=== PATIENT | female | born 1950 | race Caucasian/White ===

== ENCOUNTER 2018-09-19 15:55 | Inpatient (IN) | payer OTHER ==
--- OUTSIDE RECORDS SUMMARY | 2018-09-19 15:58 | XMS REPORT | Clinical Summary ---
:1950 Author Organization [facility] Address [address] [place] [address] Care Team Providers Name Role Phone Gregorio Schumacher DO Primary Care Provider Allergies Not on File Medications Not on file Active Problems Not on file Encounters Date Type Specialty Care Team Description 08/20/2018 Hospital Encounter Radiology Gregorio Schumacher Memory loss III, DO 08/13/2018 Transcribe Orders Access Gregorio Schumacher Memory loss ( Primary Dx) III, DO after 09/18/2017 Social History Tobacco Use Types Packs/Day Years Used Date Never Assessed Sex Assigned at Date Recorded Not on file Job Start Date Occupation Industry Not on file Not on file Not on file Travel History Travel Start Travel End No recent travel history available. Last Filed Vital Signs Not on file Plan of Treatment Health Maintenance Due Date Last Done Comments BREAST CANCER SCREENING 1998 COLON CANCER SCREENING 1998 SHINGLES VACCINES (#1) 1998 65+ PNEUMOCOCCAL VACCINE (1 of 2 - PCV13) 2013 PNEUMOCOCCAL POLYSACCHARIDE VACCINE AGE 65 AND OVER 2013 INFLUENZA VACCINE 02/19/2018 Procedures Procedure Name Priority Date/Time Associated Diagnosis Comments MRI BRAIN WO Routine 08/20/2018 12:34 PM Memory loss Results for this CONTRAST FUR TRIMMER procedure are in the results section. after 09/18/2017 Results MRI Brain Wo Contrast (08/20/2018 12:34 PM FUR TRIMMER) Narrative Performed At EXAMINATION: MRI BRAIN WO CONTRAST HM RADIANT CLINICAL HISTORY: R41.3 Other amnesia, R41.3 COMPARISON:None TECHNIQUE: Multiplanar and multisequence MRI imaging of the brain was obtained without contrast. FINDINGS: There is no evidence of acute infarct, intracranial hemorrhage or mass, hydrocephalus or midline shift. There is mild nonspecific enlargement of the ventricles and extra axial space and nonspecific white matter changes. There is no evidence of normal pressure hydrocephalus. The sella is slightly enlarged and partially empty. The orbits, sinuses and mastoid air cells do not show acute abnormality. IMPRESSION: No acute findings in the brain or extra axial region. If indicated further evaluation with a PET scan can be performed for memory loss. [facility]-[id number] Procedure Note Hm Interface, Radiology Results Incoming - 08/20/2018 12:40 PM FUR TRIMMER EXAMINATION: MRI BRAIN WO CONTRAST CLINICAL HISTORY: R41.3 Other amnesia, R41.3 COMPARISON: None TECHNIQUE: Multiplanar and multisequence MRI imaging of the brain was obtained without contrast. FINDINGS: There is no evidence of acute infarct, intracranial hemorrhage or mass, hydrocephalus or midline shift. There is mild nonspecific enlargement of the ventricles and extra axial space and nonspecific white matter changes. There is no evidence of normal pressure hydrocephalus. The sella is slightly enlarged and partially empty. The orbits, sinuses and mastoid air cells do not show acute abnormality. IMPRESSION: No acute findings in the brain or extra axial region. If indicated further evaluation with a PET scan can be performed for memory loss. [facility]-[id number] Performing Organization Address City/State/Zipcode Phone Number [facility] [address] [place] [address] after 09/18/2017 Insurance Payer Benefit Plan / Group Subscriber ID Type Phone Address [employer] PPO xxxxxxxxxx PPO [id number] MEDICARE MEDICARE PART A AND B xxxxxxxxxxx Medicare [place], [place] CIGNA CIGNA HMO/POS xxxxxxxxxx O Advance Directives Patient has advance care planning documents on file. For more information, please contact:[address] [address]
[2018-09-19] MEDS ORDERED: LEVALBUTEROL 1.25 MG/3 ML NEB ONE (16:49)
[2018-09-19] MEDS ORDERED: NA CHLORIDE 0.9% 1,000 ML ONE (16:50)
[2018-09-19] MEDS ORDERED: NA CHLORIDE 0.9% 500 ML ONE (16:50)
[2018-09-19] MEDS ORDERED: levoFLOXacin 500 MG TAB ONE (17:14)
[2018-09-19 17:31] LABS: ALT/SGPT 42 U/L (12-78); AST/SGOT 27 U/L (15-37); Albumin 3.6 g/dL (3.4-5.0); Alkaline Phosphatase 95 U/L (45-117); BUN Blood Urea Nitrogen 13 mg/dL (7-18); Bicarbonate 31 mmol/L (21-32); Bilirubin Direct 0.3 mg/dL (0-0.2); Bilirubin Total 1.1 mg/dL (0.2-1.0); CKMB Creatine Kinase MB < 1.0 ng/mL (0.3-3.6); Creatine Phosphokinase 38 U/L (26-192); Glucose Level 167 mg/dL (74-106); Lipase 56 U/L (73-393); Potassium 3.3 mmol/L (3.5-5.1); Protein, Total 7.3 g/dL (6.4-8.2); Sodium Level 132 mmol/L (136-145); Troponin (Emerg Dept Use Only) 0.02 ng/mL (0.0-0.045)
[2018-09-19 17:33] LABS: Protime INR 1.17
--- NOTE | 2018-09-19 17:42 | RAD REPORT ---
EXAM DESCRIPTION: RAD - Chest Single View - 09/19/2018 5:36 pm CLINICAL HISTORY: Congestion;Cough Chest pain. COMPARISON: No comparisons FINDINGS: Portable technique limits examination quality. Mild consolidation is seen in the right upper lobe compatible with pneumonia. The lungs are emphysema tous. The heart is normal in size. No displaced fractures. IMPRESSION: Right upper lobe pneumonia.
[2018-09-19 17:46] LABS: Absolute Lymphocytes (CBC) 0.8 K/uL (0.7-4.9); Absolute Neutrophil 16.8 K/uL (1.8-8.0); Basophils % 0.2 % (0-1.3); Hematocrit 45.4 % (36.0-45.0); Lymphocytes % 4.4 % (15.3-44.8); MPV 9.7 fL (7.6-11.3); Monocytes % 5.2 % (3.3-12.3); RBC Red Blood Cell Count 5.05 M/uL (3.86-4.86)
--- NOTE | 2018-09-19 18:02 | EDPHYS ---
Physician Documentation [facility] Name: Colleen Kohler Age: 68 yrs Sex: Female : 1950 Arrival Date: 09/19/2018 Time: 16:00 Bed 27 Private MD: ED Physician Fletcher Awan HPI: 09/19 16:30 This 68 yrs old Female presents to ER via Ambulatory with complaints of kdr Dizziness, Back Pain, Cough. 16:45 The patient or guardian reports cough, that is intermittent, described as moderate, kdr with productive sputum, difficulty breathing. Onset: The symptoms/episode began/occurred gradually, 2 week(s) ago. Severity of symptoms: At their worst the symptoms were mild, moderate, just prior to arrival, in the emergency department the symptoms are unchanged. Modifying factors: The symptoms are alleviated by nothing, the symptoms are aggravated by exertion, Coughing. Associated signs and symptoms: Pertinent positives: Pertinent negatives: chest pain, diarrhea, ear ache, fever, nausea, rhinorrhea. The patient has not experienced similar symptoms in the past. The patient has been recently seen by a physician: Was seen at urgent care and given abx about two weeks ago but she has continued to get worse. Now with cough/congestion and mild conofusion. Historical: - Allergies: 16:04 PENICILLINS; hj 16:04 Sulfa (Sulfonamide Antibiotics); hj - Home Meds: 16:04 benzonatate 200 mg oral cap 1 cap 3 times per day [Active]; metoprolol tartrate 25 mg hj Oral tab 1 tab once daily [Active]; donepezil 5 mg oral tab 1 tab once daily [Active]; oseltamivir oral oral 1 cap once daily [Active]; - PMHx: 16:04 Hypertension; Alzheimers; hj - PSHx: 16:04 wrist; hj - Immunization history:: Adult Immunizations up to date. - Social history:: Smoking status: Patient/guardian denies using tobacco, Patient/guardian denies using alcohol. - Ebola Screening: : Patient negative for fever greater than or equal to 101.5 degrees Fahrenheit, and additional compatible Ebola Virus Disease symptoms Patient denies exposure to infectious person Patient denies travel to an Ebola-affected area in the 21 days before illness onset. ROS: 16:45 Constitutional: Negative for fever, chills, and weight loss, Eyes: Negative for injury, kdr pain, redness, and discharge, ENT: Negative for injury, pain, and discharge, Neck: Negative for injury, pain, and swelling, Cardiovascular: Negative for chest pain, palpitations, and edema, Abdomen/GI: Negative for abdominal pain, nausea, vomiting, diarrhea, and constipation, Back: Negative for injury and pain, : Negative for injury, bleeding, discharge, and swelling, MS/Extremity: Negative for injury and deformity, Skin: Negative for injury, rash, and discoloration, Psych: Negative for depression, anxiety, suicide ideation, homicidal ideation, and hallucinations, Allergy/Immunology: Negative for hives, rash, and allergies, Endocrine: Negative for neck swelling, polydipsia, polyuria, polyphagia, and marked weight changes, Hematologic/Lymphatic: Negative for swollen nodes, abnormal bleeding, and unusual bruising. 16:45 Respiratory: Positive for cough, with green sputum, dyspnea on exertion, shortness of breath, wheezing, Negative for hemoptysis, orthopnea, pleurisy. 16:45 Abdomen/GI: Positive for abdominal pain. Exam: 16:45 Constitutional: This is a well developed, well nourished patient who is awake, alert, kdr and in no acute distress. Head/Face: Normocephalic, atraumatic. Eyes: Pupils equal round and reactive to light, extra-ocular motions intact. Lids and lashes normal. Conjunctiva and sclera are non-icteric and not injected. Cornea within normal limits. Periorbital areas with no swelling, redness, or edema. Neck: Trachea midline, no thyromegaly or masses palpated, and no cervical lymphadenopathy. Supple, full range of motion without nuchal rigidity, or vertebral point tenderness. No Meningismus. Chest/axilla: Normal chest wall appearance and motion. Nontender with no deformity. No lesions are appreciated. Cardiovascular: Regular rate and rhythm with a normal S1 and S2. No gallops, murmurs, or rubs. Normal PMI, no JVD. No pulse deficits. Abdomen/GI: Soft, non-tender, with normal bowel sounds. No distension or tympany. No guarding or rebound. No evidence of tenderness throughout. Back: No spinal tenderness. No costovertebral tenderness. Full range of motion. Skin: Warm, dry with normal turgor. Normal color with no rashes, no lesions, and no evidence of cellulitis. MS/ Extremity: Pulses equal, no cyanosis. Neurovascular intact. Full, normal range of motion. Neuro: Awake and alert, GCS 15, oriented to person, place, time, and situation. Cranial nerves II-XII grossly intact. Motor strength 5/5 in all extremities. Sensory grossly intact. Cerebellar exam normal. Normal gait. Psych: Awake, alert, with orientation to person, place and time. Behavior, mood, and affect are within normal limits. 16:45 Respiratory: the patient does not display signs of respiratory distress, Respirations: normal, Breath sounds: rales, that are mild, are scattered, are heard diffusely, rhonchi, that are mild, are scattered. Vital Signs: 16:05 BP 123 / 91; Pulse 89; Resp 18; Temp 99.1(O); Pulse Ox 95% on R/A; Weight 56.7 kg; hj Height 5 ft. 4 in. (162.56 cm); 17:26 BP 141 / 91 LA Supine (auto/reg); Pulse 103; Pulse Ox 95% on R/A; jp3 17:28 BP 117 / 82 LA Sitting (auto/reg); Pulse 107; Pulse Ox 94% on R/A; jp3 17:30 BP 89 / 61 LA Standing (auto/reg); Pulse 106; Pulse Ox 95% on R/A; jp3 18:08 BP 121 / 82; Pulse 95; Resp 18; Temp 99.3(TE); Pulse Ox 96% on 2 lpm NC; Pain 0/10; mg2 19:47 BP 131 / 86; Pulse 96; Resp 18; Temp 98.8(O); Pulse Ox 97% on R/A; Pain 3/10; mg2 16:05 Body Mass Index 21.46 (56.70 kg, 162.56 cm) hj 17:26 Patient reported "feeling uncomfortable, pain to right and left tempal" jp3 17:28 Pt reported "feeling worse than supine position" jp3 17:30 Pt reported "feeling better" jp3 MDM: 16:45 Data reviewed: vital signs, nurses notes, lab test result(s), EKG, radiologic studies. kdr 18:01 Patient medically screened. kdr 09/19 16:30 Order name: Sed Rate kdr 03 16:30 Order name: C-Reactive Protein; Complete Time: 17:43 kdr 09/19 16:30 Order name: Basic Metabolic Panel; Complete Time: 17:43 kdr 09/19 16:30 Order name: Blood Culture Adult (2) kdr 09/19 16:30 Order name: CBC with Diff kdr 09/19 16:30 Order name: Ckmb; Complete Time: 17:43 kdr 09/19 16:30 Order name: CPK; Complete Time: 17:43 kdr 09/19 16:30 Order name: Lactate; Complete Time: 17:43 kdr 09/19 16:30 Order name: LFT's; Complete Time: 17:43 kdr 09/19 16:30 Order name: Lipase; Complete Time: 17:43 kdr 09/19 16:30 Order name: Procalcitonin; Complete Time: 17:43 kdr 09/19 16:30 Order name: Protime (+inr) kdr 09/19 16:30 Order name: Ptt, Activated kdr 09/19 16:30 Order name: Troponin (emerg Dept Use Only); Complete Time: 17:43 kdr 09/19 16:30 Order name: Urine Microscopic Only kdr 09/19 16:30 Order name: Chest Single View XRAY; Complete Time: 17:43 kdr 09/19 16:30 Order name: Accucheck; Complete Time: 16:58 kdr 09/19 16:30 Order name: Cardiac monitoring; Complete Time: 16:58 kdr 09/19 16:30 Order name: EKG - Nurse/Tech; Complete Time: 18:40 kdr 09/19 16:30 Order name: IV Saline Lock - Large Bore; Complete Time: 16:58 kdr 09/19 16:31 Order name: Sedimentation Rate, Westergren EDAZ 09/19 18:40 Order name: Urine Dipstick--Ancillary (enter results) eb 09/19 18:42 Order name: CT Head Brain w/wo Con mg2 09/19 19:08 Order name: Urine Dipstick-Ancillary EDAZ 09/19 19:12 Order name: CT EDMS 09/19 16:30 Order name: Labs collected and sent; Complete Time: 16:58 kdr 09/19 16:30 Order name: O2 Per Protocol; Complete Time: 16:58 kdr 09/19 16:30 Order name: O2 Sat Monitoring; Complete Time: 16:58 kdr 09/19 16:30 Order name: Urine Dipstick-Ancillary (obtain specimen); Complete Time: 18:57 kdr 09/19 16:31 Order name: Orthostatic Blood Pressure; Complete Time: 17:42 kdr Administered Medications: 16:57 Drug: Xopenex (3) 1.25 mg Route: Inhalation; mg2 19:49 Follow up: Response: No adverse reaction mg2 16:58 Drug: NS 0.9% (30 ml/kg) 30 ml/kg Route: IV; Rate: bolus; Site: right antecubital; mg2 19:49 Follow up: Response: No adverse reaction; IV Status: Infusion continued upon transfer mg2 17:44 Drug: LevaQUIN 500 mg Route: PO; mg2 19:49 Follow up: Response: No adverse reaction mg2 18:07 Drug: vancoMYCIN 1 grams Route: IVPB; Infused Over: 2 hrs; Site: right antecubital; mg2 19:49 Follow up: Response: No adverse reaction; IV Status: Infusion continued upon admission mg2 19:47 Drug: Tylenol 1000 mg Route: PO; mg2 19:48 Follow up: Response: No adverse reaction mg2 Disposition: 09/19/18 18:01 Hospitalization ordered by Karli Zuniga for Inpatient Admission. Preliminary diagnosis are Pneumonia, unspecified organism, Sepsis, hypoxia (87%) RA, Hypotension. - Bed requested for Telemetry/MedSurg (Inpatient). - Status is Inpatient Admission. mg2 - Condition is Fair. - Problem is new. - Symptoms are unchanged. UTI on Admission? No Signatures: Dispatcher [employer] [facility] Yareli White RN RN Fletcher Awan MD MD [facility] Marty Neumann RN RN Omid Conlkin RN RN mg2 Corrections: (The following items were deleted from the chart) 18:30 18:01 Hospitalization Ordered by Karli Zuniga MD for Inpatient Admission. Preliminary diagnosis is Pneumonia, unspecified organism; Sepsis; hypoxia (87%) RA; Hypotension. Bed requested for Telemetry/MedSurg (Inpatient). Status is Inpatient Admission. Condition is Fair. Problem is new. Symptoms are unchanged. UTI on Admission? No. kdr 20:20 18:30 09/19/2018 18:01 Hospitalization Ordered by Karli Zuniga MD for Inpatient mg2 Admission. Preliminary diagnosis is Pneumonia, unspecified organism; Sepsis; hypoxia (87%) RA; Hypotension. Bed requested for Telemetry/MedSurg (Inpatient). Status is Inpatient Admission. Condition is Fair. Problem is new. Symptoms are unchanged. UTI on Admission? No. dw
--- NOTE | 2018-09-19 18:02 | ER ---
Nurse's Notes [facility] Name: Colleen Kohler Age: 68 yrs Sex: Female : 1950 Arrival Date: 09/19/2018 Time: 16:00 Bed 27 Private MD: Diagnosis: Pneumonia, unspecified organism;Sepsis;hypoxia (87%) RA;Hypotension Presentation: 09/19 16:01 Presenting complaint: states: she been treated for bronchitis, its getting hj worse, cough is getting worse and she's getting dizzy; denies fever and chills;. Transition of care: patient was not received from another setting of care. Onset of symptoms was September 19, 2018. Risk Assessment: Do you want to hurt yourself or someone else? Patient reports no desire to harm self or others. Initial Sepsis Screen: Does the patient meet any 2 criteria? No. Patient's initial sepsis screen is negative. Does the patient have a suspected source of infection? No. Patient's initial sepsis screen is negative. Care prior to arrival: None. 16:01 Method Of Arrival: Ambulatory 16:01 Acuity: LUIS DANIEL 3 hj Triage Assessment: 16:05 General: Appears in no apparent distress. uncomfortable, Behavior is calm, cooperative, hj appropriate for age. Pain: Denies pain. Musculoskeletal: Circulation, motion, and sensation intact. Capillary refill. Historical: - Allergies: 16:04 PENICILLINS; hj 16:04 Sulfa (Sulfonamide Antibiotics); hj - Home Meds: 16:04 benzonatate 200 mg oral cap 1 cap 3 times per day [Active]; metoprolol tartrate 25 mg Oral tab 1 tab once daily [Active]; donepezil 5 mg oral tab 1 tab once daily [Active]; oseltamivir oral oral 1 cap once daily [Active]; - PMHx: 16:04 Hypertension; Alzheimers; hj - PSHx: 16:04 wrist; hj - Immunization history:: Adult Immunizations up to date. - Social history:: Smoking status: Patient/guardian denies using tobacco, Patient/guardian denies using alcohol. - Ebola Screening: : Patient negative for fever greater than or equal to 101.5 degrees Fahrenheit, and additional compatible Ebola Virus Disease symptoms Patient denies exposure to infectious person Patient denies travel to an Ebola-affected area in the 21 days before illness onset. Screenin:05 Abuse screen: Denies threats or abuse. Denies injuries from another. Nutritional hj screening: No deficits noted. Tuberculosis screening: No symptoms or risk factors identified. Fall Risk None identified. Assessment: 17:47 General: Appears in no apparent distress. comfortable, Behavior is calm, cooperative. mg2 Pain: Complains of pain in back and left temporal Pain does not radiate. Pain currently is 2 out of 10 on a pain scale. Quality of pain is described as aching, Pain began gradually, 2 weeks ago Is intermittent. Neuro: Level of Consciousness is awake, alert, obeys commands, Oriented to person, place, time, situation, Reports dizziness. Cardiovascular: Capillary refill < 3 seconds Patient's skin is warm and dry. Respiratory: Airway is patent Respiratory effort is even, unlabored, Respiratory pattern is regular, symmetrical. Respiratory: cough. GI: No signs and/or symptoms were reported involving the gastrointestinal system. : No signs and/or symptoms were reported regarding the genitourinary system. EENT: No signs and/or symptoms were reported regarding the EENT system. Derm: Skin is intact, is healthy with good turgor, Skin is pink, warm \\T\\ dry. normal. Musculoskeletal: Circulation, motion, and sensation intact. Capillary refill. 18:08 Reassessment: patient informed about the need for hospitalization, patient agreed. mg2 18:41 Reassessment: dr dove at bedside examining the patient. mg2 Vital Signs: 16:05 BP 123 / 91; Pulse 89; Resp 18; Temp 99.1(O); Pulse Ox 95% on R/A; Weight 56.7 kg; hj Height 5 ft. 4 in. (162.56 cm); 17:26 BP 141 / 91 LA Supine (auto/reg); Pulse 103; Pulse Ox 95% on R/A; jp3 17:28 BP 117 / 82 LA Sitting (auto/reg); Pulse 107; Pulse Ox 94% on R/A; jp3 17:30 BP 89 / 61 LA Standing (auto/reg); Pulse 106; Pulse Ox 95% on R/A; jp3 18:08 BP 121 / 82; Pulse 95; Resp 18; Temp 99.3(TE); Pulse Ox 96% on 2 lpm NC; Pain 0/10; mg2 19:47 BP 131 / 86; Pulse 96; Resp 18; Temp 98.8(O); Pulse Ox 97% on R/A; Pain 3/10; mg2 16:05 Body Mass Index 21.46 (56.70 kg, 162.56 cm) hj 17:26 Patient reported "feeling uncomfortable, pain to right and left tempal" jp3 17:28 Pt reported "feeling worse than supine position" jp3 17:30 Pt reported "feeling better" jp3 ED Course: 16:00 Patient arrived in ED. mr 16:03 Triage completed. hj 16:03 Fletcher wAan MD is Attending Physician. kdr 16:05 Arm band placed on right wrist. hj 16:05 Patient has correct armband on for positive identification. Placed in gown. Call light hj in reach. Side rails up X 1. Adult w/ patient. 16:20 Omid Conklin, RN is Primary Nurse. mg2 16:21 No provider procedures requiring assistance completed. mg2 17:35 X-ray completed. Portable x-ray completed in exam room. Patient tolerated procedure mh1 well. 17:36 Chest Single View XRAY In Process Unspecified. EDMS 17:42 Sed Rate Sent. jp3 17:49 Inserted saline lock: 20 gauge in right antecubital area, using aseptic technique. mg2 Blood collected. 17:56 Karli Dove MD is Hospitalizing Provider. kdr 18:[address] nj 19:02 CT completed. Patient tolerated procedure well. Patient moved back from CT. nj 19:52 Patient admitted, IV remains in place. mg2 Administered Medications: 16:57 Drug: Xopenex (3) 1.25 mg Route: Inhalation; mg2 19:49 Follow up: Response: No adverse reaction mg2 16:58 Drug: NS 0.9% (30 ml/kg) 30 ml/kg Route: IV; Rate: bolus; Site: right antecubital; mg2 19:49 Follow up: Response: No adverse reaction; IV Status: Infusion continued upon transfer mg2 17:44 Drug: LevaQUIN 500 mg Route: PO; mg2 19:49 Follow up: Response: No adverse reaction mg2 18:07 Drug: vancoMYCIN 1 grams Route: IVPB; Infused Over: 2 hrs; Site: right antecubital; mg2 19:49 Follow up: Response: No adverse reaction; IV Status: Infusion continued upon admission mg2 19:47 Drug: Tylenol 1000 mg Route: PO; mg2 19:48 Follow up: Response: No adverse reaction mg2 Outcome: 18:01 Decision to Hospitalize by Provider. kdr 20:01 Admitted to Med/surg accompanied by tech, via wheelchair, room 229, with chart, Report mg2 called to ASTER Baig 20:01 Condition: stable 20:01 Instructed on the need for admit, Demonstrated understanding of instructions. 20:20 Patient left the ED. mg2 Signatures: Dispatcher [employer] EDMS Fletcher Awan MD MD [facility] Chaney, Margaret Daniel Gutiérrezha 1 Marty Neumann RN RN hj Adilson Martinez Michele, RN RN mg2 Chepe Fuentes jp3 Corrections: (The following items were deleted from the chart) 16:07 16:05 Pulse 89bpm; Resp 18bpm; Pulse Ox 96% RA; Temp 99.1F Oral; 56.7 kg; Height 5 ft. hj 4 in.; BMI: 21.4; hj 16:07 16:05 BP 123 / 91; Pulse 89bpm; Resp 18bpm; Pulse Ox 96% RA; Temp 99.1F Oral; 56.7 kg; hj Height 5 ft. 4 in.; BMI: 21.4; hj
[2018-09-19] MEDS ORDERED: VANCOMYCIN 1 GM/VIAL ONE (18:06)
[2018-09-19] MEDS ORDERED: NA CHLORIDE 0.9% 250 ML ONE (18:06)
--- NOTE | 2018-09-19 18:23 | P.HP ---
Certification for Inpatient Patient admitted to: Inpatient With expected LOS: >2 Midnights Patient will require the following post-hospital care: None Practitioner: I am a practitioner with admitting privileges, knowledge of patient current condition, hospital course, and medical plan of care. Services: Services provided to patient in accordance with Admission requirements found in Title 42 Section 412.3 of the Code of Federal Regulations Patient History Date of Service: 09/19/18 Reason for admission: PNA History of Present Illness: 68-year-old female with significant past medical history of hypertension, COPD, and dementia who presented to the ED complaining of having some cough and congestion that has been going on for over a month now. Patient and at bedside stated that they both went to the urgent care last week when they started having fever chills coughing congestion and were discharged on the urgent care with prescription for Tamiflu, cough medicine, antibiotics for her. Patient stated that she did not have any resolution of her symptoms and thus she decided to come to the ER. Patient continues to have fever and chills at the house. T-max of 99.4. She has last about 2-3 seconds and go away. Patient states that she does not have a primary care doctor in town and does not followup with anybody. She has been traveling with her and moves from state to state thus not able to establish care with anyone particular doctor. Patient does not currently take any inhalers for her COPD. Denies smoking or alcohol ever. Denies having any shortness of breath chest pain nausea vomiting or any other associated symptoms. Home medications list reviewed: Yes - Past Medical/Surgical History Has patient received pneumonia vaccine in the past: Yes Diabetic: No -: HTN -: COPD -: dementia Past Surgical History: Reviewed- Non-Contributory - Family History Family History: Reviewed- Non-Contributory - Social History Smoking Status: Never smoker Counseled patient to stop smoking for: more than 10 minutes Smoking therapy provided: Yes Patient receptive to therapy: Yes Alcohol use: No CD- Drugs: No Caffeine use: No Place of Residence: Home Review of Systems 10-point ROS is otherwise unremarkable Physical Examination - Physical Exam General: Alert, In no apparent distress, Demented HEENT: Atraumatic, PERRLA, Mucous membr. moist/pink, EOMI, Sclerae nonicteric Neck: Supple, 2+ carotid pulse no bruit, No LAD, Without JVD or thyroid abnormality Respiratory: Normal air movement, Expiratory wheezes, Inspiratory wheezes Cardiovascular: Regular rate/rhythm, Normal S1 S2 Gastrointestinal: Normal bowel sounds, No tenderness Musculoskeletal: No tenderness Integumentary: No rashes Neurological: Normal gait, Normal speech, Normal strength at 5/5 x4 extr, Normal tone, Normal affect Lymphatics: No axilla or inguinal lymphadenopathy - Studies Laboratory Data (last 24 hrs) 09/19/18 16:45: PT 13.7 H, INR 1.17, APTT 29.8 09/19/18 16:45: Sodium 132 L, Potassium 3.3 L, BUN 13, Creatinine 0.84, Glucose 167 H, Total Bilirubin 1.1 H, AST 27, ALT 42, Alkaline Phosphatase 95, Lipase 56 L 09/19/18 16:45: WBC 18.7 H, Hgb 15.1 H, Hct 45.4 H, Plt Count 191 Assessment and Plan - Problems (Diagnosis) (1) PNA (pneumonia) Current Visit: Yes Status: Acute Plan: Pt with post influenza RUL PNA. Failed Outpt therapy. -recently finished treatment for influenza with Tamiflu. -IV Levaquin at this time -Sputum culture and blood culture to be collected -Will monitor continuously Qualifiers: Pneumonia type: due to unspecified organism Laterality: right Lung location: upper lobe of lung Qualified Code(s): J18.1 - Lobar pneumonia, unspecified organism (2) COPD (chronic obstructive pulmonary disease) Current Visit: Yes Status: Acute Plan: Acute COPD exacerbation most likely secondary to pneumonia -duo nebs, steroids, oxygen at this time -will get pulmonology consulted if no improvement. Qualifiers: COPD type: emphysema Emphysema type: centrilobular Qualified Code(s): J43.2 - Centrilobular emphysema (3) HTN (hypertension) Current Visit: Yes Status: Chronic Qualifiers: Hypertension type: essential hypertension Qualified Code(s): I10 - Essential (primary) hypertension (4) Dementia Current Visit: Yes Status: Chronic Qualifiers: Dementia type: Alzheimer's disease Alzheimer's disease onset: early-onset Dementia behavioral disturbance: without behavioral disturbance Qualified Code(s): G30.0 - Alzheimer's disease with early onset; F02.80 - Dementia in other diseases classified elsewhere without behavioral disturbance Discharge Plan: Home Plan to discharge in: Greater than 2 days - Advance Directives Does patient have a Living Will: No Does patient have a Durable POA for Healthcare: No - Code Status/Comfort Care Code Status Assessed: Yes Critical Care: No
[2018-09-19 19:08] LABS: Urine Blood TRACE (NEG); Urine Glucose NEGATIVE (NEG); Urine Protein TRACE (NEG); Urine Specific Gravity 1.015 (1.005-1.030)
--- NOTE | 2018-09-19 19:09 | RAD REPORT ---
EXAM DESCRIPTION: CT - Head Brain Wo Cont - 09/19/2018 7:03 pm CLINICAL HISTORY: DIZZINESS Drowsiness, headache COMPARISON: No comparisons TECHNIQUE: All CT scans are performed using dose optimization technique as appropriate and may inclu de automated exposure control or mA/KV adjustment according to patient size. FINDINGS: No intracranial hemorrhage, hydrocephalus or extra-axial fluid collection.Mild generalized brain atrophy is present with mild periventricular and deep white matter chronic microvascular ische brian changes.No areas of brain edema or evidence of midline shift. The paranasal sinuses and mastoids are clear. The calvarium is intact. IMPRESSION: No acute intracranial abnormality.
[2018-09-19 19:17] LABS: Urine RBC NONE SEEN /HPF (NONE SEEN)
[2018-09-19 19:18] LABS: Urine Bacteria <20 /HPF (<20); Urine Culture Reflex Order REFLEXED
[2018-09-19] MEDS ORDERED: ACETAMINOPHEN 500 MG TAB ONE (19:53)
[2018-09-19] MEDS: IPRATROPIUM BROM 0.5MG/2.5ML NEB SCH (20:00)
[2018-09-19] MEDS: LEVALBUTEROL 0.63 MG/3 ML NEB NEB SCH (20:00)
[2018-09-19 20:27] LABS: Blood Morphology Comment NOT SEEN (NOT SEEN); Platelet Estimate ADEQ
[2018-09-19] MEDS ORDERED: PROMETHAZINE 25 MG TABLET PO PRN (20:35)
[2018-09-19] MEDS ORDERED: ONDANSETRON 4 MG/2 ML VIAL IV PRN (20:35)
[2018-09-19] MEDS ORDERED: POTASSIUM CL SA 10 MEQ TAB PO ONE (20:52)
[2018-09-19] MEDS: NA CHLORIDE 0.9% 1,000 ML IV SCH (21:43)
[2018-09-20] MEDS: IPRATROPIUM BROM 0.5MG/2.5ML NEB SCH ×4 (02:00→20:00)
[2018-09-20] MEDS: LEVALBUTEROL 0.63 MG/3 ML NEB NEB SCH ×4 (02:00→20:00)
[2018-09-20 05:06] LABS: Absolute Lymphocytes (CBC) 1.2 K/uL (0.7-4.9); Absolute Neutrophil 13.5 K/uL (1.8-8.0); Basophils % 0.2 % (0-1.3); Hematocrit 33.2 % (36.0-45.0); Lymphocytes % 7.6 % (15.3-44.8); MPV 9.4 fL (7.6-11.3); Monocytes % 6.3 % (3.3-12.3); RBC Red Blood Cell Count 3.75 M/uL (3.86-4.86)
[2018-09-20 05:33] LABS: ALT/SGPT 30 U/L (12-78); AST/SGOT 16 U/L (15-37); Albumin 2.7 g/dL (3.4-5.0); Alkaline Phosphatase 78 U/L (45-117); BUN Blood Urea Nitrogen 11 mg/dL (7-18); Bicarbonate 30 mmol/L (21-32); Bilirubin Total 0.9 mg/dL (0.2-1.0); Glucose Level 109 mg/dL (74-106); Magnesium 1.7 mg/dL (1.8-2.4); Phosphorus 1.4 mg/dL (2.5-4.9); Potassium 3.3 mmol/L (3.5-5.1); Protein, Total 5.7 g/dL (6.4-8.2); Sodium Level 141 mmol/L (136-145)
[2018-09-20] MEDS: NA CHLORIDE 0.9% 1,000 ML IV SCH (05:39)
[2018-09-20] MEDS ORDERED: MAGNESIUM SULFATE 1 gm IVPB 1 GM/100 ML BAG IV ONE (06:09)
--- NOTE | 2018-09-20 08:44 | RAD REPORT ---
EXAM DESCRIPTION: Michel Dodge And Tuan (2 Views)09/20/2018 6:28 am CLINICAL HISTORY: Shortness of breath COMPARISON: September 19 FINDINGS: The right upper lobe consolidation has mildly worsened. Mild left parahilar opacity suspec evelin. . The heart is normal size IMPRESSION: Mild worsening in a right upper lobe consolidation consist with pneumonia. This should b e followed until it has cleared to help exclude a post obstructive process/underlying mass
[2018-09-20] MEDS: ENOXAPARIN 40 MG/0.4 ML SQ SCH (08:58)
[2018-09-20] MEDS ORDERED: POTASSIUM PHOS IN 0.9 % NACL 15 MMOL/250 ML BAG IV ONE (09:00)
[2018-09-20] MEDS ORDERED: POTASSIUM CL SA 10 MEQ TAB PO ONE ×2 (09:00→21:30)
--- NOTE | 2018-09-20 09:49 | P.CNS ---
Date of Consult: 09/20/18 Chief Complaint: PNA History of Present Illness: Patient is 68 years of age a very poor historian she cannot recall why she is here in the hospital the fact that she is out of town does not recall in the town according to the notes she came to the emergency room with cough congestion for over a month recently discharged from urgent care with a prescription of Tamiflu continues to have persistent cough and fever chills and diagnosed with acute right upper lobe pneumonia. History of dementia patient states she has never smoked . Allergies Penicillins Allergy (Mild, Verified 09/19/18 20:52) Hives/Rash egg Allergy (Verified 09/20/18 08:56) Nausea/Vomiting Milk Containing Products Allergy (Verified 09/19/18 20:53) Nausea/Vomiting Sulfa (Sulfonamide Antibiotics) Allergy (Verified 09/19/18 20:52) Hives/Rash Home Medications: Benzonatate 200 mg PO TID PRN 09/19/18 Donepezil [Aricept*] 1 tab PO BEDTIME 09/19/18 Metoprolol Succinate 1 tab PO DAILY 09/19/18 - Past Medical/Surgical History Diabetic: No -: HTN -: COPD -: dementia -: right wrist surgery - Social History Alcohol use: No CD- Drugs: No Caffeine use: No Place of Residence: Home Review of Systems 10-point ROS is otherwise unremarkable Respiratory: Cough Physical Examination Temp Pulse Resp BP Pulse Ox 97.9 F 78 20 169/95 H 96 09/20/18 08:00 09/20/18 08:00 09/20/18 08:00 09/20/18 08:00 09/20/18 08:00 General: Alert, Oriented x1 Respiratory: Clear to auscultation bilaterally, Crackles/rales (Crackles in the right upper zone and here) Cardiovascular: No edema, Regular rate/rhythm Gastrointestinal: Normal bowel sounds, Soft and benign Musculoskeletal: No clubbing, No swelling Laboratory Data (last 24 hrs) 09/19/18 16:45: PT 13.7 H, INR 1.17, APTT 29.8 09/19/18 16:45: Sodium 132 L, Potassium 3.3 L, BUN 13, Creatinine 0.84, Glucose 167 H, Total Bilirubin 1.1 H, AST 27, ALT 42, Alkaline Phosphatase 95, Lipase 56 L 03/01/19 16:45: WBC 18.7 H, Hgb 15.1 H, Hct 45.4 H, Plt Count 191 - Problems (1) PNA (pneumonia) Current Visit: Yes Status: Acute Plan: Patient is 68 years of age admitted with cough she does have a right upper lobe pneumonia patient is not at risk for resistant organisms patient is allergic to penicillin labs reviewed white count elevated blood pressure stable oxygenation satisfactory and awake overnight monitor to p.o. levofloxacin probably discharge tomorrow to follow up with me in 2-4 weeks Dc IV fluids went volume overload patient denies smoking history am not sure if she has COPD we needs to be evaluated and cannot recall the doctors so she is to see patient apparently just moved into [place] Qualifiers: Pneumonia type: due to unspecified organism Laterality: right Lung location: upper lobe of lung Qualified Code(s): J18.1 - Lobar pneumonia, unspecified organism
--- NOTE | 2018-09-20 10:43 | RAD REPORT ---
EXAM DESCRIPTION: CT - Thorax Wo Con - 09/20/2018 10:26 am CLINICAL HISTORY: sob COMPARISON: September 20, 2018 chest x-ray TECHNIQUE: Computed axial tomography of the chest was obtained. Contrast was not requested. All CT scans are performed using dose optimization technique as appropriate and may include automated exposure control or mA/KV adjustment according to patient size. FINDINGS: The evaluation of mediastinum, lito and vessels is limited secondary to lack of IV contras t administration. 9 centimeter right upper lobe consolidation. Additional patchy right upper lobe opacities. 2.4 centim eter left lower lobe consolidation. . The small calcified hilar and calcified mediastinal lymph nodes. Ascending aorta has an AP diameter 3 .6 centimeters Minimal pleural effusions bilaterally. A pericardial effusion is not seen. IMPRESSION: Moderate right upper lobe and small left lower lobe consolidations consistent with pneum onia. This should be followed with chest x-ray until it has cleared to help exclude a post obstructiv e process
--- NOTE | 2018-09-20 10:55 | P.PN ---
Subjective Date of Service: 09/20/18 Chief Complaint: PNA Patient seen and examined at bedside with RN. Chart reviewed. Case discussed with pulmonology at this time. Patient states that she does not feel better this morning. She states that she feels a little bit worse than before. Chest x-ray consistent with mild worsening. Chest CT ordered at this time. Saturating well on nasal cannula Review of Systems 10-point ROS is otherwise unremarkable Physical Examination - Vital Signs Temperature: 97.9 F Blood Pressure: 169/95 Pulse: 78 Respirations: 20 Pulse Ox (%): 96 - Physical Exam General: Alert, In no apparent distress, Demented HEENT: Atraumatic, PERRLA, EOMI Neck: Supple, JVD not distended Respiratory: Normal air movement, Crackles/rales, Expiratory wheezes, Inspiratory wheezes Cardiovascular: Regular rate/rhythm, Normal S1 S2 Gastrointestinal: Normal bowel sounds, No tenderness Musculoskeletal: No tenderness Integumentary: No rashes Neurological: Normal speech, Normal tone, Normal affect Lymphatics: No axilla or inguinal lymphadenopathy - Studies Laboratory Data (last 24 hrs) 09/19/18 16:45: PT 13.7 H, INR 1.17, APTT 29.8 09/19/18 16:45: Sodium 132 L, Potassium 3.3 L, BUN 13, Creatinine 0.84, Glucose 167 H, Total Bilirubin 1.1 H, AST 27, ALT 42, Alkaline Phosphatase 95, Lipase 56 L 09/19/18 16:45: WBC 18.7 H, Hgb 15.1 H, Hct 45.4 H, Plt Count 191 Medications List Reviewed: Yes Assessment And Plan - Current Problems (Diagnosis) (1) PNA (pneumonia) Current Visit: Yes Status: Acute Plan: Pt with post influenza RUL PNA. Failed Outpt therapy. -recently finished treatment for influenza with Tamiflu. -IV Levaquin at this time will continue that here in the hospital -Sputum culture and blood culture to be collected pending at this time -CT chest pending at this time as well Qualifiers: Pneumonia type: due to unspecified organism Laterality: right Lung location: upper lobe of lung Qualified Code(s): J18.1 - Lobar pneumonia, unspecified organism (2) COPD (chronic obstructive pulmonary disease) Current Visit: Yes Status: Acute Plan: Acute COPD exacerbation most likely secondary to pneumonia -duo nebs, steroids, oxygen at this time -will get pulmonology consulted if no improvement. Qualifiers: COPD type: emphysema Emphysema type: centrilobular Qualified Code(s): J43.2 - Centrilobular emphysema (3) HTN (hypertension) Current Visit: Yes Status: Chronic Qualifiers: Hypertension type: essential hypertension Qualified Code(s): I10 - Essential (primary) hypertension (4) Dementia Current Visit: Yes Status: Chronic Qualifiers: Dementia type: Alzheimer's disease Alzheimer's disease onset: early-onset Dementia behavioral disturbance: without behavioral disturbance Qualified Code(s): G30.0 - Alzheimer's disease with early onset; F02.80 - Dementia in other diseases classified elsewhere without behavioral disturbance Discharge Plan: Home Plan to discharge in: 48 Hours - Code Status/Comfort Care Code Status Assessed: Yes Critical Care: No
[2018-09-20] MEDS ORDERED: Levofloxacin 750mg IV 750 MG/150 ML BAG IV SCH (18:00)
[2018-09-21] MEDS: LEVALBUTEROL 0.63 MG/3 ML NEB NEB SCH ×4 (02:00→20:00)
[2018-09-21] MEDS: IPRATROPIUM BROM 0.5MG/2.5ML NEB SCH ×4 (02:00→20:00)
[2018-09-21 05:05] LABS: Absolute Monocytes 0.7 K/uL (0.1-1.3); Absolute Neutrophil 7.5 K/uL (1.8-8.0); Basophils % 0.3 % (0-1.3); Eosinophils % 0.4 % (0-4.4); Hematocrit 34.4 % (36.0-45.0); Lymphocytes % 11.3 % (15.3-44.8); MPV 9.5 fL (7.6-11.3); Monocytes % 7.1 % (3.3-12.3); RBC Red Blood Cell Count 3.87 M/uL (3.86-4.86)
[2018-09-21 05:13] LABS: ALT/SGPT 26 U/L (12-78); AST/SGOT 16 U/L (15-37); Albumin 2.6 g/dL (3.4-5.0); Alkaline Phosphatase 76 U/L (45-117); BUN Blood Urea Nitrogen 7 mg/dL (7-18); Bicarbonate 28 mmol/L (21-32); Bilirubin Total 0.6 mg/dL (0.2-1.0); Glucose Level 119 mg/dL (74-106); Magnesium 1.7 mg/dL (1.8-2.4); Phosphorus 1.4 mg/dL (2.5-4.9); Potassium 3.7 mmol/L (3.5-5.1); Protein, Total 5.9 g/dL (6.4-8.2); Sodium Level 141 mmol/L (136-145)
[2018-09-21] MEDS ORDERED: MAGNESIUM SULFATE 1 gm IVPB 1 GM/100 ML BAG IV ONE (07:00)
[2018-09-21] MEDS ORDERED: POTASSIUM PHOS IN 0.9 % NACL 15 MMOL/250 ML BAG IV ONE (08:30)
[2018-09-21] MEDS: ENOXAPARIN 40 MG/0.4 ML SQ SCH (08:32)
--- NOTE | 2018-09-21 10:14 | EKG ---
Test Date: 2018-09-19 Test Time: 18:30:40 Acute Care Certified Nursing Assistant: MG MEASUREMENT RESULTS: Intervals: Rate: 96 WY: 140 QRSD: 86 QT: 372 QTc: 469 [place]: P: 51 WY: 140 QRS: 54 T: 66 INTERPRETIVE STATEMENTS: Normal sinus rhythm Normal ECG No previous ECG available for comparison Electronically Signed On 09-21-18 10:12:48 RETAIL MANAGEMENT KEYHOLDER by David Stephen
--- NOTE | 2018-09-21 12:40 | P.PN ---
Subjective Date of Service: 09/21/18 Chief Complaint: PNA Patient seen and examined at bedside with RN. Chart reviewed. Case discussed with pulmonology at this time. Saturating well on nasal cannula. BP restarted today. Review of Systems 10-point ROS is otherwise unremarkable Physical Examination - Vital Signs Temperature: 98.3 F Blood Pressure: 179/94 Pulse: 82 Respirations: 18 Pulse Ox (%): 99 - Physical Exam General: Alert, In no apparent distress HEENT: Atraumatic, PERRLA, EOMI Neck: Supple, JVD not distended Respiratory: Normal air movement, Crackles/rales Cardiovascular: Regular rate/rhythm, Normal S1 S2 Gastrointestinal: Normal bowel sounds, No tenderness Musculoskeletal: No tenderness Integumentary: No rashes Neurological: Normal speech, Normal tone, Normal affect Lymphatics: No axilla or inguinal lymphadenopathy - Studies Medications List Reviewed: Yes Assessment And Plan - Current Problems (Diagnosis) (1) PNA (pneumonia) Current Visit: Yes Status: Acute Plan: Pt with post influenza RUL PNA. Failed Outpt therapy. -recently finished treatment for influenza with Tamiflu. -IV Levaquin at this time will continue that here in the hospital -Sputum culture and blood culture to be collected pending at this time -CT chest - Mild to mod RUL PNA Qualifiers: Pneumonia type: due to unspecified organism Laterality: right Lung location: upper lobe of lung Qualified Code(s): J18.1 - Lobar pneumonia, unspecified organism (2) COPD (chronic obstructive pulmonary disease) Current Visit: Yes Status: Acute Plan: Acute COPD exacerbation most likely secondary to pneumonia -duo nebs, steroids, oxygen at this time -will get pulmonology consulted if no improvement. Qualifiers: COPD type: emphysema Emphysema type: centrilobular Qualified Code(s): J43.2 - Centrilobular emphysema (3) HTN (hypertension) Current Visit: Yes Status: Chronic Qualifiers: Hypertension type: essential hypertension Qualified Code(s): I10 - Essential (primary) hypertension (4) Dementia Current Visit: Yes Status: Chronic Qualifiers: Dementia type: Alzheimer's disease Alzheimer's disease onset: early-onset Dementia behavioral disturbance: without behavioral disturbance Qualified Code(s): G30.0 - Alzheimer's disease with early onset; F02.80 - Dementia in other diseases classified elsewhere without behavioral disturbance Discharge Plan: Home Plan to discharge in: 48 Hours - Code Status/Comfort Care Code Status Assessed: Yes Critical Care: No
[2018-09-21] MEDS: METOPROLOL XL 25 MG TAB PO SCH (12:55)
[2018-09-21] MEDS ORDERED: BENZONATATE 100 MG CAP PO PRN (13:00)
[2018-09-21] MEDS ORDERED: DONEPEZIL HCL 5 MG TAB PO SCH (21:00)
[2018-09-22] MEDS: LEVALBUTEROL 0.63 MG/3 ML NEB NEB SCH ×2 (02:00→08:43)
[2018-09-22] MEDS: IPRATROPIUM BROM 0.5MG/2.5ML NEB SCH ×2 (02:00→08:43)
[2018-09-22 06:11] LABS: Absolute Lymphocytes (CBC) 1.2 K/uL (0.7-4.9); Absolute Monocytes 0.7 K/uL (0.1-1.3); Absolute Neutrophil 4.6 K/uL (1.8-8.0); Basophils % 0.6 % (0-1.3); Eosinophils % 1.4 % (0-4.4); Hematocrit 35.6 % (36.0-45.0); Lymphocytes % 17.9 % (15.3-44.8); Monocytes % 10.2 % (3.3-12.3); RBC Red Blood Cell Count 4.03 M/uL (3.86-4.86)
[2018-09-22 06:22] LABS: ALT/SGPT 24 U/L (12-78); AST/SGOT 12 U/L (15-37); Albumin 2.7 g/dL (3.4-5.0); Alkaline Phosphatase 75 U/L (45-117); BUN Blood Urea Nitrogen 4 mg/dL (7-18); Bicarbonate 28 mmol/L (21-32); Bilirubin Total 0.6 mg/dL (0.2-1.0); Glucose Level 108 mg/dL (74-106); Magnesium 1.9 mg/dL (1.8-2.4); Phosphorus 2.7 mg/dL (2.5-4.9); Potassium 3.8 mmol/L (3.5-5.1); Protein, Total 6.1 g/dL (6.4-8.2); Sodium Level 140 mmol/L (136-145)
[2018-09-22] MEDS ORDERED: POTASSIUM CL SA 10 MEQ TAB PO ONE (07:44)
[2018-09-22] MEDS ORDERED: levoFLOXacin 500 MG TAB PO SCH (09:00)
[2018-09-22] MEDS: ENOXAPARIN 40 MG/0.4 ML SQ SCH (09:26)
[2018-09-22] MEDS: METOPROLOL XL 25 MG TAB PO SCH (09:27)
--- NOTE | 2018-09-22 11:24 | P.DS ---
Admission Date: 09/19/18 Discharge Date: 09/22/18 Disposition: ROUTINE DISCHARGE Discharge Condition: GOOD Reason for Admission: PNA - Problems (1) PNA (pneumonia) Current Visit: Yes Status: Acute Qualifiers: Pneumonia type: due to unspecified organism Laterality: right Lung location: upper lobe of lung Qualified Code(s): J18.1 - Lobar pneumonia, unspecified organism (2) COPD (chronic obstructive pulmonary disease) Current Visit: Yes Status: Acute Qualifiers: COPD type: emphysema Emphysema type: centrilobular Qualified Code(s): J43.2 - Centrilobular emphysema (3) HTN (hypertension) Current Visit: Yes Status: Chronic Qualifiers: Hypertension type: essential hypertension Qualified Code(s): I10 - Essential (primary) hypertension (4) Dementia Current Visit: Yes Status: Chronic Qualifiers: Dementia type: Alzheimer's disease Alzheimer's disease onset: early-onset Dementia behavioral disturbance: without behavioral disturbance Qualified Code(s): G30.0 - Alzheimer's disease with early onset; F02.80 - Dementia in other diseases classified elsewhere without behavioral disturbance Brief History of Present Illness: 68-year-old female with significant past medical history of hypertension, COPD, and dementia who presented to the ED complaining of having some cough and congestion that has been going on for over a month now. Patient and at bedside stated that they both went to the urgent care last week when they started having fever chills coughing congestion and were discharged on the urgent care with prescription for Tamiflu, cough medicine, antibiotics for her. Patient stated that she did not have any resolution of her symptoms and thus she decided to come to the ER. Patient continues to have fever and chills at the house. T-max of 99.4. She has last about 2-3 seconds and go away. Patient states that she does not have a primary care doctor in town and does not followup with anybody. She has been traveling with her and moves from state to [facility] thus not able to establish care with anyone particular doctor. Patient does not currently take any inhalers for her COPD. Denies smoking or alcohol ever. Denies having any shortness of breath chest pain nausea vomiting or any other associated symptoms. Hospital Course: Overall during the hospital stay patient remained stable The patient was initially admitted to the hospital for failed outpatient therapy community-acquired pneumonia. Patient was started on IV Levaquin while here in the hospital. Patient had marked improvement in her symptoms and 48 hr after hospital stay. Physical therapy was consulted. Patient was able to work with physical therapy ambulate without oxygenation and saturating well 98-99% on room air. Patient was able to tolerate her diet and thus was discharged home under stable condition was given a prescription for Levaquin to be taken for next 14 days. Patient was also asked to establish care with a primary care provider in the area if she is going to be staying in the area. Patient was also given information to follow up bicycle fitter here in [facility] to ensure she is doing well post discharge. Patient demonstrated understanding and thus was discharged home under stable condition. Vital Signs/Physical Exam: Temp Pulse Resp BP Pulse Ox 99.8 F 76 18 152/92 H 93 09/22/18 08:00 09/22/18 09:27 09/22/18 08:00 09/22/18 09:27 09/22/18 08:00 General: Alert, In no apparent distress HEENT: Atraumatic, PERRLA, EOMI Neck: Supple, JVD not distended Respiratory: Clear to auscultation bilaterally, Normal air movement Cardiovascular: Regular rate/rhythm, Normal S1 S2 Gastrointestinal: Normal bowel sounds, No tenderness Musculoskeletal: No tenderness Integumentary: No rashes Neurological: Normal speech, Normal tone, Normal affect Lymphatics: No axilla or inguinal lymphadenopathy Laboratory Data at Discharge: WBC 6.6 K/uL (4.3-10.9) D 09/22/18 05:55 Hgb 12.1 g/dL (12.0-15.0) 09/22/18 05:55 Hct 35.6 % (36.0-45.0) L 09/22/18 05:55 Plt Count 260 K/uL (152-406) 09/22/18 05:55 PT 13.7 SECONDS (9.5-12.5) H 09/19/18 16:45 INR 1.17 09/19/18 16:45 APTT 29.8 SECONDS (24.3-36.9) 09/19/18 16:45 Sodium 140 mmol/L (136-145) 09/22/18 05:43 Potassium 3.8 mmol/L (3.5-5.1) 09/22/18 05:43 BUN 4 mg/dL (7-18) L 09/22/18 05:43 Creatinine 0.52 mg/dL (0.55-1.3) L 09/22/18 05:43 Glucose 108 mg/dL (74-106) H 09/22/18 05:43 Phosphorus 2.7 mg/dL (2.5-4.9) D 09/22/18 05:43 Magnesium 1.9 mg/dL (1.8-2.4) 09/22/18 05:43 Total Bilirubin 0.6 mg/dL (0.2-1.0) 09/22/18 05:43 AST 12 U/L (15-37) L 09/22/18 05:43 ALT 24 U/L (12-78) 09/22/18 05:43 Alkaline Phosphatase 75 U/L (45-117) 09/22/18 05:43 Lipase 56 U/L (73-393) L 09/19/18 16:45 Home Medications: Benzonatate 200 mg PO TID PRN 09/19/18 Donepezil [Aricept*] 1 tab PO BEDTIME 09/19/18 Metoprolol Succinate 1 tab PO DAILY 09/19/18 levoFLOXacin [Levaquin*] 500 mg PO DAILY #14 tab 09/22/18 New Medications: levoFLOXacin [Levaquin*] 500 mg PO DAILY #14 tab Patient Discharge Instructions: Please followup with primary care provider and bicycle fitter in about 1-2 days post discharge. New medication. Levaquin 500 mg for total 14 day. The take probiotic with your Antibiotics to avoid stomach infection Diet: Regular Activity: Ad marce Followup: Martinez Escalante MD [ACTIVE - CAN ADMIT] -
--- NOTE | 2018-09-22 12:23 | P.PN ---
Subjective Date of Service: 09/22/18 Chief Complaint: PNA Subjective: Improving (Patient is doing better no new complaints) Review of Systems General: Weakness Respiratory: Cough Physical Examination - Vital Signs Temperature: 99.8 F Blood Pressure: 152/92 Pulse: 76 Respirations: 18 Pulse Ox (%): 93 - Physical Exam General: Alert, Oriented x3 Respiratory: Crackles/rales (Minimal crackles in the right upper zone) Cardiovascular: No edema - Studies Medications List Reviewed: Yes Assessment & Plan - Problems (Diagnosis) (1) PNA (pneumonia) Current Visit: Yes Status: Acute Plan: Patient is 68 years of age she is doing much better today less confused denies any chest pain fever chills or cough patient is stable to be discharged home on levofloxacin follow with me in 2 weeks cultures all negative her white count is also back to normal oxygenation satisfactory Qualifiers: Pneumonia type: due to unspecified organism Laterality: right Lung location: upper lobe of lung Qualified Code(s): J18.1 - Lobar pneumonia, unspecified organism
== END 2018-09-22 14:00 | disposition home or self-care (01) | DRG 190 ==
LOC: ER 15:55 → ERHOLD 18:09 → 2ND 20:00
PROVIDERS: ADMIT Family Medicine; ATTEND Family Medicine
DX: J43.2 Centrilobular emphysema (principal); J18.1 Lobar pneumonia, unspecified organism; I10 Essential (primary) hypertension; G30.0 Alzheimer's disease with early onset; F02.80 Dementia in other diseases classified elsewhere, unspecified severity, without behavioral disturbance, psychotic disturbance, mood disturbance, and anxiety; Z88.0 Allergy status to penicillin; Z88.2 Allergy status to sulfonamides
CPT/HCPCS: 36415; 70450; 71045; 71046; 71250; 80048; 80053; 80076; 81003; 81015; 82550; 82553; 83605; 83690; 83735; 84100; 84132; 84145; 84484; 85025; 85610; 85652; 85730; 86140; 87040; 87070; 87086; 87088; 87205; 87804; 93005; 94640; 94760; 96365; 96366; 97162; 99285; J1650; J3475; J7030

== ENCOUNTER 2019-02-14 14:35 | Observation (INO) | payer OTHER ==
--- OUTSIDE RECORDS SUMMARY | 2019-02-14 14:37 | XMS REPORT | Clinical Summary ---
:1950 Author Organization [facility] Address [address] [place] [address] Care Team Providers Name Role Phone Gregorio Schumacher DO Primary Care Provider Allergies Not on File Medications Not on file Active Problems Not on file Encounters Date Type Specialty Care Team Description 08/20/2018 Hospital Encounter Radiology Gregorio Schumacher Memory loss III, DO 08/13/2018 Transcribe Orders Access Gregorio Schumacher Memory loss ( Primary Dx) III, DO after 02/13/2018 Social History Tobacco Use Types Packs/Day Years [...] Last Done Comments BREAST CANCER SCREENING 1998 COLONOSCOPY SCREENING 1998 SHINGLES VACCINES (#1) 1998 65+ PNEUMOCOCCAL VACCINE (1 of 2 - PCV13) 2013 INFLUENZA VACCINE 02/19/2019 Procedures Procedure Name Priority Date/Time Associated Diagnosis Comments MRI BRAIN WO Routine 08/20/2018 12:34 PM Memory loss Results for this CONTRAST LABOR TRAINER procedure are in the results section. after 02/13/2018 Results MRI Brain Wo Contrast (08/20/2018 12:34 PM LABOR TRAINER) Specimen Narrative Performed At EXAMINATION: MRI BRAIN WO [...] scan can be performed for memory loss. [facility]-[id number] Procedure Note Hm Interface, Radiology Results Incoming - 08/20/2018 12:40 PM LABOR TRAINER EXAMINATION: MRI BRAIN WO CONTRAST CLINICAL HISTORY: [...] scan can be performed for memory loss. [facility]-[id number] Performing Organization Address City/State/Zipcode Phone Number [facility] [address] [place] [address] after 02/13/2018 Insurance Payer Benefit Plan / Subscriber ID Effective Phone Address Type Group Dates CIGNA CIGNA xxxxxxxxxx 2018-Pres [facility] PPO ent M[employer] MEDICARE MEDICARE PART A xxxxxxxxxxx 2013-Pres [place], [place] Medicare AND B ent CIGNA CIGNA HMO/POS xxxxxxxxxx 2018-Pr HMO esent Advance Directives Patient has advance care planning documents on file. For more information, please contact:[facility] [place] [phone]
[2019-02-14] MEDS ORDERED: NA CHLORIDE 0.9% 1,000 ML ONE ×2 (15:18→22:05)
[2019-02-14 15:19] LABS: Absolute Lymphocytes (CBC) 0.9 K/uL (0.7-4.9); Basophils % 0.3 % (0-1.3); Hematocrit 42.8 % (36.0-45.0); Lymphocytes % 11.9 % (15.3-44.8); MPV 9.2 fL (7.6-11.3); RBC Red Blood Cell Count 4.74 M/uL (3.86-4.86)
[2019-02-14] MEDS ORDERED: cloNIDine HCl 0.1 MG TAB ONE (15:27)
[2019-02-14] MEDS ORDERED: DIPHENHYDRAMINE 50 MG/ML VIAL ONE (15:27)
[2019-02-14] MEDS ORDERED: METOCLOPRAMIDE 10 MG/2mL INJ ONE (15:27)
[2019-02-14] MEDS ORDERED: AMLODIPINE 5 MG TAB ONE (15:28)
[2019-02-14] MEDS ORDERED: KETOROLAC 30 MG/ML INJ ONE (15:28)
[2019-02-14] MEDS ORDERED: METOPROLOL TARTRATE 5 MG/5 ML INJ IV ONE (15:28)
[2019-02-14 15:31] LABS: Protime INR 0.96
[2019-02-14 15:35] LABS: ALT/SGPT 93 U/L (12-78); AST/SGOT 48 U/L (15-37); Albumin 4.3 g/dL (3.4-5.0); Alkaline Phosphatase 99 U/L (45-117); BUN Blood Urea Nitrogen 15 mg/dL (7-18); Bicarbonate 30 mmol/L (21-32); Bilirubin Direct 0.3 mg/dL (0-0.2); Bilirubin Total 1.1 mg/dL (0.2-1.0); Glucose Level 116 mg/dL (74-106); Magnesium 2.4 mg/dL (1.8-2.4); NT PRO-BNP 263 pg/mL (<125); Potassium 3.8 mmol/L (3.5-5.1); Protein, Total 7.8 g/dL (6.4-8.2); Sodium Level 139 mmol/L (136-145); Troponin (Emerg Dept Use Only) < 0.02 ng/mL (0.0-0.045)
--- NOTE | 2019-02-14 16:06 | RAD REPORT ---
EXAM DESCRIPTION: CT - Head Brain Wo Cont - 02/14/2019 3:59 pm CLINICAL HISTORY: Headache COMPARISON: September 2018 TECHNIQUE: Computed axial tomography of the head was obtained. IV contrast was not requested. All CT scans are performed using dose optimization technique as appropriate and may include automated exposure control or mA/KV adjustment according to patient size. FINDINGS: An intracranial bleed is not seen . The ventricles are normal in caliber. No extra-axial fluid collection is noted. Mild to moderate low-density areas within periventricular, deep and subcortical white matter likely r epresent ischemic changes secondary to small vessel disease. Fluid within the sinuses/ mastoids is not seen. IMPRESSION: No acute intracranial abnormality is seen. If patient's symptoms persist MRI of the bra in would be recommended.
[2019-02-14 16:15] LABS: Urine Blood NEGATIVE (NEG); Urine Glucose TRACE (NEG); Urine Protein NEGATIVE (NEG); Urine pH 7.5 (5.0-7.0)
--- NOTE | 2019-02-14 16:17 | ER ---
Nurse's Notes [facility] Name: Colleen Kohler Age: 68 yrs Sex: Female : 1950 Arrival Date: 02/14/2019 Time: 14:37 Bed 4 Private MD: Diagnosis: Essential (primary) hypertension;Headache;Dementia in other diseases classified elsewhere Presentation: 02/14 14:41 Presenting complaint: Patient states: Pain to both temples for the past week, that got aj1 worse today. Patient also reports dizziness. Denies fever. Denies head injury. Transition of care: patient was not received from another setting of care. Onset of symptoms was February 07, 2019. Risk Assessment: Do you want to hurt yourself or someone else? Patient reports no desire to harm self or others. Initial Sepsis Screen: Does the patient meet any 2 criteria? HR > 90 bpm. No. Patient's initial sepsis screen is negative. Does the patient have a suspected source of infection? No. Patient's initial sepsis screen is negative. Care prior to arrival: None. 14:41 Method Of Arrival: Wheelchair aj 14:44 Acuity: LUIS DANIEL 2 aj1 Triage Assessment: 14:44 Headache History: The patient has had previous headaches and this one is similar to aj1 previous episodes. General: Appears in no apparent distress. uncomfortable, Behavior is cooperative, anxious, restless. Pain: Complains of pain in right yazidism and left yazidism Pain currently is 10 out of 10 on a pain scale. Pain began suddenly, Also complains of no other associated symptoms. Neuro: Level of Consciousness is awake, alert, obeys commands. Cardiovascular: Patient's skin is warm and dry. Respiratory: Airway is patent Respiratory effort is even, unlabored, Respiratory pattern is regular, symmetrical. Historical: - Allergies: 14:43 PENICILLINS; aj1 14:43 Sulfa (Sulfonamide Antibiotics); aj1 - Home Meds: 14:43 benzonatate 200 mg Oral cap 1 cap 3 times per day [Active]; donepezil 5 mg Oral tab 1 aj1 tab once daily [Active]; metoprolol tartrate 25 mg Oral tab 1 tab once daily [Active]; oseltamivir Oral 1 cap once daily [Active]; - PMHx: 14:43 Alzheimers; Hypertension; aj1 - Immunization history:: Flu vaccine is up to date. - Social history:: Smoking status: Patient/guardian denies using tobacco. - Ebola Screening: : Patient denies travel to an Ebola-affected area in the 21 days before illness onset. - Family history:: not pertinent. Screenin:00 Abuse screen: Denies threats or abuse. Denies injuries from another. Nutritional sv screening: No deficits noted. Tuberculosis screening: No symptoms or risk factors identified. Fall Risk None identified. Assessment: 15:00 General: Appears in no apparent distress. uncomfortable, slender, well developed, sv Behavior is cooperative, appropriate for age, anxious. Pain: Complains of pain in left yazidism and right yazidism Pain currently is 10 out of 10 on a pain scale. Quality of pain is described as throbbing, Pain began 1 day ago. Is continuous. Neuro: Level of Consciousness is awake, alert, obeys commands, Oriented to person, place, time, situation, Moves all extremities. Full function Gait is steady, Speech is normal, Facial symmetry appears normal, Reports headache bilateral temples. Cardiovascular: Patient's skin is warm and dry. Pulses are 3+ in right radial artery and left radial artery Rhythm is sinus rhythm. Respiratory: Airway is patent Respiratory effort is even, unlabored, Respiratory pattern is regular, symmetrical. Derm: Skin is pink, warm \T\ dry. Musculoskeletal: Range of motion: intact in all extremities. 15:29 Reassessment: Patient appears in no apparent distress at this time. No changes from sv previously documented assessment. Patient and/or family updated on plan of care and expected duration. Pain level reassessed. Patient is alert, oriented x 3, equal unlabored respirations, skin warm/dry/pink. 15:41 Reassessment: assisted patient to bedside commode. Urine sample obtained. Patient back ss in bed on monitors. Lights dimmed for comfort. 16:29 Reassessment: Patient appears in no apparent distress at this time. Patient and/or sv family updated on plan of care and expected duration. Pain level reassessed. Patient is alert, oriented x 3, equal unlabored respirations, skin warm/dry/pink. Patient states feeling better. Patient states symptoms have improved. Pain: Complains of pain in left yazidism and right yazidism Pain currently is 5 out of 10 on a pain scale. 17:00 Reassessment: Patient appears in no apparent distress at this time. Patient and/or ss family updated on plan of care and expected duration. Pain level reassessed. Patient is alert, oriented x 3, equal unlabored respirations, skin warm/dry/pink. Patient denies pain at this time. Patient states feeling better. Patient states symptoms have improved. 18:00 Reassessment: Patient eating diet tray at this time. Denies pain. ss 18:30 Reassessment: Attempted to call report, nurse unavailable at this itme. ss 19:05 Reassessment: Dr. Kim notified of low blood pressure. 500 mL bolus ordered and ss administered. 19:15 General: Appears in no apparent distress. comfortable, Behavior is calm, cooperative, rr5 appropriate for age, ongoing of NS 500 bolus. Pain: Denies pain. Neuro: Level of Consciousness is awake, alert, obeys commands, Oriented to person, place, time, situation, Appropriate for age. 19:15 Cardiovascular: Capillary refill < 3 seconds Patient's skin is warm and dry. rr5 Respiratory: Airway is patent Respiratory effort is even, unlabored, Respiratory pattern is regular, symmetrical. GI: No signs and/or symptoms were reported involving the gastrointestinal system. : No signs and/or symptoms were reported regarding the genitourinary system. EENT: No signs and/or symptoms were reported regarding the EENT system. Derm: Skin is intact, Skin is pink, warm \T\ dry. Skin temperature is warm. Musculoskeletal: Capillary refill < 3 seconds, Range of motion: intact in all extremities. 19:35 Reassessment: NS 500ml bolus consumed.ED provider informed for the BP 69/45 mmHg rr5 another 500 of NS bolus given. 20:15 Reassessment: Patient appears in no apparent distress at this time. Patient is alert, rr5 oriented x 3, equal unlabored respirations, skin warm/dry/pink. NS 500ml bolus consumed BP rechecked 101/73 mmHg. 20:45 Reassessment: dr. douglass informed for the BP 85/53mmHg thru phone. he said he will come rr5 to see the patient. 21:00 Reassessment: seen and examined by dr. douglass with order made and carried out. rr5 21:44 Reassessment: spoke to Dr Douglass received verbal order, read back, for NS 0.9% bolus pt bb medicated see SEP. 22:35 Reassessment: Patient appears in no apparent distress at this time. Patient is alert, rr5 oriented x 3, equal unlabored respirations, skin warm/dry/pink. dr. douglass called and order patient can be shifted if the BP is stable on strict bed rest. BP 90/65 mmHg. 22:42 Reassessment: Patient appears in no apparent distress at this time. Patient is alert, rr5 oriented x 3, equal unlabored respirations, skin warm/dry/pink. 4th floor staff Staci informed patient is for strict bed rest. Vital Signs: 14:44 BP 198 / 118; Pulse 98; Resp 18; Temp 97.5; Pulse Ox 99% on R/A; Height 5 ft. 4 in. aj1 (162.56 cm) (R); Pain 10/10; 15:07 BP 209 / 124; Pulse 86; Resp 17; Pulse Ox 95% on R/A; sv 15:30 BP 202 / 132; Pulse 85 MON; Resp 17; Pulse Ox 97% on R/A; sv 16:12 BP 182 / 114; Pulse 78; Resp 19; Pulse Ox 92% on R/A; sv 16:29 BP 177 / 101; Pulse 76; Resp 17; Pulse Ox 100% on 2 lpm NC; sv 17:00 BP 147 / 91; Pulse 75; Resp 17; Pulse Ox 98% 2 lpm ; sv 17:30 BP 125 / 85; Pulse 68; Resp 17; Pulse Ox 98% on 2 lpm NC; sv 18:39 BP 110 / 69; Pulse 70; Resp 17; Pulse Ox 95% on 2 lpm NC; Pain 0/10; sv 19:02 BP 62 / 43; Pulse 65; Resp 19; Pulse Ox 95% on 2 lpm NC; sv 19:10 BP 65 / 40; Pulse 64; ss 19:15 BP 67 / 40; Pulse 63; Resp 17; Temp 97.6; Pulse Ox 98% on 2 lpm NC; Pain 0/10; rr5 19:35 BP 69 / 45; Pulse 65; Resp 17; Pulse Ox 99% on 2 lpm NC; rr5 20:15 BP 101 / 73; Pulse 73; Resp 17; Pulse Ox 99% on 2 lpm NC; rr5 20:25 BP 101 / 68; Pulse 62; Resp 16; Pulse Ox 99% on 2 lpm NC; rr5 20:45 BP 85 / 53; Pulse 61; Resp 15; Pulse Ox 97% on 2 lpm NC; rr5 21:00 BP 74 / 44; Pulse 59; Resp 15; Pulse Ox 98% on 2 lpm NC; rr5 21:15 BP 83 / 51; Pulse 63; Resp 16; Pulse Ox 98% ; rr5 21:30 BP 78 / 48; Pulse 58; Resp 15; Pulse Ox 99% on 2 lpm NC; rr5 21:45 BP 80 / 52; Pulse 59; Resp 14; Pulse Ox 99% on 2 lpm NC; rr5 22:00 BP 90 / 59; Pulse 58; Resp 15; Pulse Ox 100% on 2 lpm NC; rr5 22:15 BP 92 / 64; Pulse 58; Resp 14; Pulse Ox 99% on 2 lpm NC; rr5 22:30 BP 90 / 65; Pulse 57; Resp 16; Pulse Ox 99% ; rr5 22:45 BP 123 / 85; Pulse 64; Resp 17; Pulse Ox 98% ; rr5 15:07 Sinus Rhythm sv 15:30 Sinus Rhythm sv 16:12 Pt placed on O2 \T\ 2L per NC. sv 19:15 ongoing NS 500 bolus rr5 21:[address] douglass to give NS 250ml bolus. rr5 21:15 hospitalist informed thru voicemail after NS 250ml rr5 21:45 2nd NS 250ml started as bolus rr5 ED Course: 14:37 Patient arrived in ED. as 14:44 Triage completed. aj1 14:44 Arm band placed on Patient placed in an exam room. aj1 14:50 Anthony Kim MD is Attending Physician. dell 14:55 Laura Edouard, ASTER is Primary Nurse. sv 14:55 ED physician to see patient. sv 15:00 Patient has correct armband on for positive identification. Placed in gown. Bed in low sv position. Call light in reach. Adult w/ patient. barrel repairer on. Pulse ox on. NIBP on. Door closed. Warm blanket given. Head of bed elevated. 15:05 Initial lab(s) drawn, by me, sent to lab. Inserted saline lock: 22 gauge in right sv antecubital area, using aseptic technique. Blood collected. Flushed right antecubital with 5 ml normal saline. 15:19 EKG done, by ED staff, reviewed by Anthony Kim MD. em1 15:31 X-ray(s) taken. sv 15:44 Urine Dipstick--Ancillary (enter results) Sent. sv 15:45 Awaiting lab results, Awaiting CT Scan. sv 15:[address] via stretcher. sv 15:50 XRAY Chest (1 view) Sent. sv 15:52 X-ray completed. Portable x-ray completed in exam room. Patient tolerated procedure mh1 well. 15:56 XRAY Chest (1 view) In Process Unspecified. EDMS 15:58 CT completed. Patient tolerated procedure well. Patient moved back from CT. bq 16:00 CT Head Brain wo Cont In Process Unspecified. EDMS 16:05 Patient moved back from CT. sv 16:15 Mitch Loaiza MD is Hospitalizing Provider. dell 19:00 Report given to Fara RODARTE and Amarjit RODARTE. sv 19:31 Primary Nurse role handed off by Laura Edouard RN sv 19:49 Amarjit Bartholomew RN is Primary Nurse. rr5 19:57 No provider procedures requiring assistance completed. Patient admitted, IV remains in rr5 place. intact, No redness/swelling at site. Administered Medications: 15:06 Drug: NS 0.9% 1000 ml Route: IV; Rate: 125 ml/hr; Site: right antecubital; ss 20:33 Follow up: Response: No adverse reaction; IV Status: Infusion continued upon admission; rr5 IV Intake: 125ml 15:20 Drug: Benadryl 25 mg Route: IVP; Site: right antecubital; sv 15:45 Follow up: Response: No adverse reaction sv 15:22 Drug: TORadol 30 mg Route: IVP; Site: right antecubital; sv 15:46 Follow up: Response: No adverse reaction sv 15:24 Drug: Reglan 10 mg Route: IVP; Site: right antecubital; sv 15:46 Follow up: Response: No adverse reaction sv 15:26 Drug: Lopressor 5 mg Route: IVP; Site: right antecubital; sv 15:46 Follow up: Response: No adverse reaction sv 15:29 Drug: cloNIDine 0.1 mg Route: PO; sv 15:47 Follow up: Response: No adverse reaction sv 15:30 Drug: Norvasc 10 mg Route: PO; sv 15:45 Follow up: Response: No adverse reaction sv 16:22 Drug: Lopressor 25 mg Route: PO; sv 16:43 Follow up: Response: No adverse reaction; Blood pressure is lowered sv 16:22 Drug: hydrALAZINE 5 mg Route: IV; Rate: per protocol; Site: right antecubital; sv 16:23 Follow up: Response: No adverse reaction; IV Status: Completed infusion; IV Intake: sv 0.25ml 16:22 Drug: hydrALAZINE 10 mg Route: PO; sv 16:42 Follow up: Response: No adverse reaction; Blood pressure is lowered sv 19:04 Drug: NS 0.9% 500 ml Route: IV; Rate: bolus; Site: right antecubital; ss 19:35 Follow up: Response: No adverse reaction; Blood pressure is unchanged; IV Status: rr5 Completed infusion; IV Intake: 500ml 19:36 Drug: NS 0.9% 500 ml Route: IV; Rate: bolus; Site: right antecubital; rr5 20:15 Follow up: Response: No adverse reaction; IV Status: Completed infusion; IV Intake: rr5 500ml 21:00 Drug: NS 0.9% 250 ml Route: IV; Rate: bolus; Site: right antecubital; rr5 21:15 Follow up: Response: No adverse reaction; IV Status: Completed infusion; IV Intake: rr5 250ml 21:48 Drug: NS 0.9% 250 ml Route: IV; Rate: bolus; Site: right antecubital; rr5 22:10 Follow up: Response: No adverse reaction; IV Status: Completed infusion; IV Intake: rr5 250ml Intake: 16:23 IV: 0ml; Total: 0ml. sv 19:35 IV: 500ml; Total: 500ml. rr5 20:15 IV: 500ml; Total: 1000ml. rr5 20:33 IV: 125ml; Total: 1125ml. rr5 21:15 IV: 250ml; Total: 1375ml. rr5 22:10 IV: 250ml; Total: 1625ml. rr5 Outcome: 16:17 Decision to Hospitalize by Provider. dell 20:25 Admitted to Tele accompanied by tech, via stretcher, room 428, with chart, Report rr5 called to staci 20:25 Condition: stable 20:25 Instructed on the need for admit. 22:38 Patient left the ED. rr5 Signatures: Dispatcher [employer] EDKaron Lees RN RN aj1 Laura Edouard RN RN sv Anthony Kim MD MD cha Harvey, Martha 1 Blaine, Autumn Jc, Fara Ahn RN RN bb Martinez, Eric [facility] Lotus Schreiber RN RN Amarjit Bartholomew RN RN rr5 Corrections: (The following items were deleted from the chart) 19:05 18:39 BP 110 / 69; Pulse 70bpm; Resp 17bpm; Pulse Ox 95% RA; Pain 0/10; ss sv 19:21 19:15 BP 67 / 40; Pulse 63bpm; Resp 17bpm; Pulse Ox 98%; Temp 97.6F; Pain 0/10; ongoing rr5 NS 500 bolus; rr5
--- NOTE | 2019-02-14 16:18 | EDPHYS ---
Physician Documentation [facility] Name: Colleen Kohler Age: 68 yrs Sex: Female : 1950 Arrival Date: 02/14/2019 Time: 14:37 Bed 4 Private MD: PADILLA Physician Anthony Kim HPI: 02/14 15:04 This 68 yrs old Female presents to ER via Wheelchair with complaints of dell Headache, High Blood Pressure. 15:04 The patient complains of pain to the right judaism and left judaism. The patient dell describes the headache as aching, intermittent. Onset: The symptoms/episode began/occurred today. Associated signs and symptoms: The patient has no apparent associated signs or symptoms. Severity of symptoms: At its worst the pain was. Headache History: The patient has had previous headaches and this one is similar to previous episodes. The symptoms are alleviated by nothing. the symptoms are aggravated by nothing. The patient has experienced similar episodes in the past, a few times. Historical: - Allergies: 14:43 PENICILLINS; aj1 14:43 Sulfa (Sulfonamide Antibiotics); aj1 - Home Meds: 14:43 benzonatate 200 mg Oral cap 1 cap 3 times per day [Active]; donepezil 5 mg Oral tab 1 aj1 tab once daily [Active]; metoprolol tartrate 25 mg Oral tab 1 tab once daily [Active]; oseltamivir Oral 1 cap once daily [Active]; - PMHx: 14:43 Alzheimers; Hypertension; aj1 - Immunization history:: Flu vaccine is up to date. - Social history:: Smoking status: Patient/guardian denies using tobacco. - Ebola Screening: : Patient denies travel to an Ebola-affected area in the 21 days before illness onset. - Family history:: not pertinent. ROS: 15:04 Constitutional: Negative for fever, chills, and weight loss, Eyes: Negative for injury, dell pain, redness, and discharge, ENT: Negative for injury, pain, and discharge, Neck: Negative for injury, pain, and swelling, Cardiovascular: Negative for chest pain, palpitations, and edema, Respiratory: Negative for shortness of breath, cough, wheezing, and pleuritic chest pain, Abdomen/GI: Negative for abdominal pain, nausea, vomiting, diarrhea, and constipation, Back: Negative for injury and pain, : Negative for injury, bleeding, discharge, and swelling, MS/Extremity: Negative for injury and deformity, Skin: Negative for injury, rash, and discoloration, Psych: Negative for depression, anxiety, suicide ideation, homicidal ideation, and hallucinations, Allergy/Immunology: Negative for hives, rash, and allergies, Endocrine: Negative for neck swelling, polydipsia, polyuria, polyphagia, and marked weight changes, Hematologic/Lymphatic: Negative for swollen nodes, abnormal bleeding, and unusual bruising. 15:04 Neuro: Positive for headache. Exam: 15:04 Constitutional: This is a well developed, well nourished patient who is awake, alert, dell and in no acute distress. Head/Face: Normocephalic, atraumatic. Eyes: Pupils equal round and reactive to light, extra-ocular motions intact. Lids and lashes normal. Conjunctiva and sclera are non-icteric and not injected. Cornea within normal limits. Periorbital areas with no swelling, redness, or edema. ENT: Nares patent. No nasal discharge, no septal abnormalities noted. Tympanic membranes are normal and external auditory canals are clear. Oropharynx with no redness, swelling, or masses, exudates, or evidence of obstruction, uvula midline. Mucous membranes moist. Neck: Trachea midline, no thyromegaly or masses palpated, and no cervical lymphadenopathy. Supple, full range of motion without nuchal rigidity, or vertebral point tenderness. No Meningismus. Chest/axilla: Normal chest wall appearance and motion. Nontender with no deformity. No lesions are appreciated. Cardiovascular: Regular rate and rhythm with a normal S1 and S2. No gallops, murmurs, or rubs. Normal PMI, no JVD. No pulse deficits. Respiratory: Lungs have equal breath sounds bilaterally, clear to auscultation and percussion. No rales, rhonchi or wheezes noted. No increased work of breathing, no retractions or nasal flaring. Abdomen/GI: Soft, non-tender, with normal bowel sounds. No distension or tympany. No guarding or rebound. No evidence of tenderness throughout. Back: No spinal tenderness. No costovertebral tenderness. Full range of motion. Skin: Warm, dry with normal turgor. Normal color with no rashes, no lesions, and no evidence of cellulitis. MS/ Extremity: Pulses equal, no cyanosis. Neurovascular intact. Full, normal range of motion. Neuro: Awake and alert, GCS 15, oriented to person, place, time, and situation. Cranial nerves II-XII grossly intact. Motor strength 5/5 in all extremities. Sensory grossly intact. Cerebellar exam normal. Normal gait. Psych: Awake, alert, with orientation to person, place and time. Behavior, mood, and affect are within normal limits. 15:04 Neck: ROM/movement: is normal, no acute changes, Meningeal signs: are not present, Kernig's sign is negative, Brudzinski's sign is negative, nuchal rigidity, is not appreciated. Vital Signs: 14:44 BP 198 / 118; Pulse 98; Resp 18; Temp 97.5; Pulse Ox 99% on R/A; Height 5 ft. 4 in. aj1 (162.56 cm) (R); Pain 10/10; 15:07 BP 209 / 124; Pulse 86; Resp 17; Pulse Ox 95% on R/A; sv 15:30 BP 202 / 132; Pulse 85 MON; Resp 17; Pulse Ox 97% on R/A; sv 16:12 BP 182 / 114; Pulse 78; Resp 19; Pulse Ox 92% on R/A; sv 16:29 BP 177 / 101; Pulse 76; Resp 17; Pulse Ox 100% on 2 lpm NC; sv 17:00 BP 147 / 91; Pulse 75; Resp 17; Pulse Ox 98% 2 lpm ; sv 17:30 BP 125 / 85; Pulse 68; Resp 17; Pulse Ox 98% on 2 lpm NC; sv 18:39 BP 110 / 69; Pulse 70; Resp 17; Pulse Ox 95% on 2 lpm NC; Pain 0/10; sv 19:02 BP 62 / 43; Pulse 65; Resp 19; Pulse Ox 95% on 2 lpm NC; sv 19:10 BP 65 / 40; Pulse 64; ss 19:15 BP 67 / 40; Pulse 63; Resp 17; Temp 97.6; Pulse Ox 98% on 2 lpm NC; Pain 0/10; rr5 19:35 BP 69 / 45; Pulse 65; Resp 17; Pulse Ox 99% on 2 lpm NC; rr5 20:15 BP 101 / 73; Pulse 73; Resp 17; Pulse Ox 99% on 2 lpm NC; rr5 20:25 BP 101 / 68; Pulse 62; Resp 16; Pulse Ox 99% on 2 lpm NC; rr5 20:45 BP 85 / 53; Pulse 61; Resp 15; Pulse Ox 97% on 2 lpm NC; rr5 21:00 BP 74 / 44; Pulse 59; Resp 15; Pulse Ox 98% on 2 lpm NC; rr5 21:15 BP 83 / 51; Pulse 63; Resp 16; Pulse Ox 98% ; rr5 21:30 BP 78 / 48; Pulse 58; Resp 15; Pulse Ox 99% on 2 lpm NC; rr5 21:45 BP 80 / 52; Pulse 59; Resp 14; Pulse Ox 99% on 2 lpm NC; rr5 22:00 BP 90 / 59; Pulse 58; Resp 15; Pulse Ox 100% on 2 lpm NC; rr5 22:15 BP 92 / 64; Pulse 58; Resp 14; Pulse Ox 99% on 2 lpm NC; rr5 22:30 BP 90 / 65; Pulse 57; Resp 16; Pulse Ox 99% ; rr5 22:45 BP 123 / 85; Pulse 64; Resp 17; Pulse Ox 98% ; rr5 15:07 Sinus Rhythm sv 15:30 Sinus Rhythm sv 16:12 Pt placed on O2 \T\ 2L per NC. sv 19:15 ongoing NS 500 bolus rr5 21:[address] douglass to give NS 250ml bolus. rr5 21:15 hospitalist informed thru voicemail after NS 250ml rr5 21:45 2nd NS 250ml started as bolus rr5 MDM: 14:51 Patient medically screened. [facility] 15:06 Data reviewed: vital signs, nurses notes, lab test result(s), EKG, radiologic studies, [facility] CT scan, plain films. 02/14 14:57 Order name: Basic Metabolic Panel; Complete Time: 16:05 [facility] 02/14 14:57 Order name: CBC with Diff; Complete Time: 15:40 [facility] 02/14 14:57 Order name: LFT's; Complete Time: 16:05 [facility] 02/14 14:57 Order name: Magnesium; Complete Time: 16:05 [facility] 02/14 14:57 Order name: NT PRO-BNP; Complete Time: 16:05 [facility] 02/14 14:57 Order name: PT-INR; Complete Time: 15:40 [facility] 02/14 14:47 Order name: CT Head Brain wo Cont; Complete Time: 16:12 snw 02/14 14:57 Order name: Troponin (emerg Dept Use Only); Complete Time: 16:05 [facility] 02/14 14:57 Order name: XRAY Chest (1 view) [facility] 02/14 15:06 Order name: Sed Rate; Complete Time: 16:26 [facility] 02/14 15:06 Order name: CRP; Complete Time: 16:05 [facility] 02/14 15:43 Order name: Urine Dipstick--Ancillary (enter results); Complete Time: 16:26 02/14 14:57 Order name: EKG; Complete Time: 14:59 [facility] 02/14 14:57 Order name: Cardiac monitoring; Complete Time: 15:07 [facility] 02/14 14:57 Order name: EKG - Nurse/Tech; Complete Time: 15:18 [facility] 02/14 14:57 Order name: IV Saline Lock; Complete Time: 15:07 [facility] 02/14 14:57 Order name: Labs collected and sent; Complete Time: 15:07 [facility] 02/14 14:57 Order name: O2 Per Protocol; Complete Time: 15:07 [facility] 02/14 14:57 Order name: O2 Sat Monitoring; Complete Time: 15:07 [facility] 02/14 14:57 Order name: Urine Dipstick-Ancillary (obtain specimen); Complete Time: 15:40 [facility] Administered Medications: 15:06 Drug: NS 0.9% 1000 ml Route: IV; Rate: 125 ml/hr; Site: right antecubital; ss 20:33 Follow up: Response: No adverse reaction; IV Status: Infusion continued upon admission; rr5 IV Intake: 125ml 15:20 Drug: Benadryl 25 mg Route: IVP; Site: right antecubital; sv 15:45 Follow up: Response: No adverse reaction sv 15:22 Drug: TORadol 30 mg Route: IVP; Site: right antecubital; sv 15:46 Follow up: Response: No adverse reaction sv 15:24 Drug: Reglan 10 mg Route: IVP; Site: right antecubital; sv 15:46 Follow up: Response: No adverse reaction sv 15:26 Drug: Lopressor 5 mg Route: IVP; Site: right antecubital; sv 15:46 Follow up: Response: No adverse reaction sv 15:29 Drug: cloNIDine 0.1 mg Route: PO; sv 15:47 Follow up: Response: No adverse reaction sv 15:30 Drug: Norvasc 10 mg Route: PO; sv 15:45 Follow up: Response: No adverse reaction sv 16:22 Drug: Lopressor 25 mg Route: PO; sv 16:43 Follow up: Response: No adverse reaction; Blood pressure is lowered sv 16:22 Drug: hydrALAZINE 5 mg Route: IV; Rate: per protocol; Site: right antecubital; sv 16:23 Follow up: Response: No adverse reaction; IV Status: Completed infusion; IV Intake: sv 0.25ml 16:22 Drug: hydrALAZINE 10 mg Route: PO; sv 16:42 Follow up: Response: No adverse reaction; Blood pressure is lowered sv 19:04 Drug: NS 0.9% 500 ml Route: IV; Rate: bolus; Site: right antecubital; ss 19:35 Follow up: Response: No adverse reaction; Blood pressure is unchanged; IV Status: rr5 Completed infusion; IV Intake: 500ml 19:36 Drug: NS 0.9% 500 ml Route: IV; Rate: bolus; Site: right antecubital; rr5 20:15 Follow up: Response: No adverse reaction; IV Status: Completed infusion; IV Intake: rr5 500ml 21:00 Drug: NS 0.9% 250 ml Route: IV; Rate: bolus; Site: right antecubital; rr5 21:15 Follow up: Response: No adverse reaction; IV Status: Completed infusion; IV Intake: rr5 250ml 21:48 Drug: NS 0.9% 250 ml Route: IV; Rate: bolus; Site: right antecubital; rr5 22:10 Follow up: Response: No adverse reaction; IV Status: Completed infusion; IV Intake: rr5 250ml Disposition: 02/14/19 16:17 Hospitalization ordered by Mitch Loaiza for Inpatient Admission. Preliminary diagnosis are Essential (primary) hypertension, Headache, Dementia in other diseases classified elsewhere. - Bed requested for Telemetry/MedSurg (Inpatient). - Status is Inpatient Admission. rr5 - Condition is Fair. - Problem is new. - Symptoms have improved. UTI on Admission? No Signatures: Dispatcher [employer] EDKaron Lees RN RN aj1 Laura Edouard RN Anthony Soto MD MD cha Ballard, Brenda, RN RN bb Lotus Schreiber RN RN ss Calos Hand RN RN ja1 Amarjit Bartholomew RN RN rr5 Corrections: (The following items were deleted from the chart) 17:57 16:17 Hospitalization Ordered by Mitch Loaiza MD for Inpatient Admission. Preliminary ja1 diagnosis is Essential (primary) hypertension; Headache; Dementia in other diseases classified elsewhere. Bed requested for Telemetry/MedSurg (Inpatient). Status is Inpatient Admission. Condition is Fair. Problem is new. Symptoms have improved. UTI on Admission? No. dell 22:38 17:57 02/14/2019 16:17 Hospitalization Ordered by Mitch Loaiza MD for Inpatient rr5 Admission. Preliminary diagnosis is Essential (primary) hypertension; Headache; Dementia in other diseases classified elsewhere. Bed requested for Telemetry/MedSurg (Inpatient). Status is Inpatient Admission. Condition is Fair. Problem is new. Symptoms have improved. UTI on Admission? No. ja1
[2019-02-14] MEDS ORDERED: HYDRALAZINE HCL 10 MG TABLET ONE (16:33)
[2019-02-14] MEDS ORDERED: METOPROLOL TAR 25 MG TAB ONE (16:33)
[2019-02-14] MEDS ORDERED: HYDRALAZINE HCL 20 MG/ML VIAL ONE (16:33)
--- NOTE | 2019-02-14 16:36 | RAD REPORT ---
EXAM DESCRIPTION: Michel Single View02/14/2019 3:53 pm CLINICAL HISTORY: cough COMPARISON: September 2018 FINDINGS: The lungs appear clear of acute infiltrate. The heart is normal size IMPRESSION: No acute abnormalities displayed
[2019-02-14] MEDS ORDERED: NA CHLORIDE 0.9% 500 ML ONE ×2 (19:21→20:46)
--- NOTE | 2019-02-14 21:11 | P.PN ---
Subjective Date of Service: 02/14/19 Subjective: Other (Assessed BP in the ER. Patient was admitted earlier for elevated BP. She was given multiple BP medication within 2 hours. BP then was low below 80 sys. She was given IV fluids. She is asymptomatic. She only takes Metoprolol 25 mg daily.) Physical Examination - Physical Exam General: Alert, In no apparent distress, Oriented x3, Cooperative HEENT: Atraumatic Neck: Supple Respiratory: Clear to auscultation bilaterally, Normal air movement Cardiovascular: Normal pulses, Regular rate/rhythm Gastrointestinal: Normal bowel sounds, Soft and benign, Non-distended - Studies Laboratory Data (last 24 hrs) 02/14/19 15:05: PT 11.3, INR 0.96 02/14/19 15:05: WBC 7.7, Hgb 14.3, Hct 42.8, Plt Count 248 02/14/19 15:05: Sodium 139, Potassium 3.8, BUN 15, Creatinine 0.88, Glucose 116 H, Magnesium 2.4 D, Total Bilirubin 1.1 H, AST 48 H, ALT 93 H, Alkaline Phosphatase 99 Assessment & Plan Discharge Plan: Home Plan to discharge in: 24 Hours Physician Review Additional Text: Assessment: Hypotension secondary to medication Plan: Patient in the ER and asymptomatic. Will give another IV 250 cc bolus of fluid then continue with maintanence fluids. BP now around 89 sys. Will hold in the ER momentarily until the BP has improved. Patient was given multiple agents of BP medication in the ER within a 2 hours span(Hydralazine, Lopressor, Norvasc..) . Medications reviewed. Will obtain and verify home meds. HOLD BP medication at this time. Strict bedrest. Fall precautions. Will update attending in the AM and reassess in the ER before she comes to the floor. Time Spent Managing Pts Care (In Minutes): 30
[2019-02-14] MEDS ORDERED: HYDRALAZINE HCL 20 MG/ML VIAL IV PRN (23:08)
[2019-02-14] MEDS ORDERED: NA CHLORIDE 0.9% 1,000 ML IV SCH (23:08)
[2019-02-14] MEDS ORDERED: ONDANSETRON 4 MG/2 ML VIAL IV PRN (23:08)
[2019-02-14] MEDS ORDERED: ATORVASTATIN 20 MG TAB PO SCH (23:08)
[2019-02-14] MEDS ORDERED: ACETAMINOPHEN 500 MG TAB PO PRN (23:08)
--- NOTE | 2019-02-15 03:02 | HP ---
Date of Admission: 02/14/2019 Code Status: Full. Primary Care Physician: Out of town. Chief Complaint: Uncontrolled blood pressure, dizziness, headache. History Of Present Illness: Patient is a 68-year-old female with past medical history of hypertensio n, COPD, dementia, as well as previous history of TIA who was in her usual state of health until past week. Patient has been having some generalized malaise. In the morning of admission, had sudden he adache, which was all over and nonradiating. Patient reports blurry vision and dizziness associated with the headache. Patient denies any word-finding difficulty. She called her and she was e valuated by her 's employer. EMS found to have elevated blood pressure and recommended to go to the ER for further evaluation. Patient's symptoms are constant, moderate, progressively worsening . No alleviating factors. Patient reports compliance with her medications. In the ER, her workup s howed negative troponin level. White count was normal. UA was negative. Her blood pressure, howeve r, was elevated in the 200s/100s and patient was given Lopressor, clonidine, and hydralazine to impro ve her blood pressure. CT scan of the head was done, which was negative for any acute abnormality. Patient felt slightly better and was then referred for admission. When seen in the ER, patient was a wake and alert, somewhat confused, unable to properly answer questions. History also given by emily lai, previous medical records, and ER staff. Past Medical History: Hypertension, COPD, dementia. Past Surgical History: Noncontributory. Denies surgical history. Allergies: PENICILLIN AND SULFA DRUGS. Social History: Patient denies tobacco use, alcohol use, or illicit drug use. Lives at home with ambrosio r , however, is at home from cover operator till around 7 to 8 p.m. when returns from [facility]. Recently was set up with home health. Grossly independent in her activities of daily living. Family History: No premature coronary artery disease in the family. Physical Examination: Vital signs: Initial blood pressure 209/124, current blood pressure 181/114; pulse 78; respirations 19; O2 of 92% on room air. General: Awake, alert, oriented, somewhat confused, elderly female. HEENT: Normocephalic, atraumatic. Pupils are round and reactive to light; however, left pupil is sl ightly larger than the right. EOMI. Moist mucous membranes. Oropharynx is clear. Conjunctivae ani cteric. Neck: Supple. No JVD. Trachea midline. Cardiovascular: S1, S2. Regular rate and rhythm. Peripheral pulses present. Respiratory: Moving air well bilaterally. No wheezing or stridor. No use of accessory muscles. Gastrointestinal: Abdomen is soft, nontender, nondistended. Positive bowel sounds. No guarding or rigidity. Extremities: No clubbing, cyanosis, or edema. No calf tenderness. Neurologic: Cranial nerves 3 through 12 intact grossly. No focal neurological deficits. Speech is normal. No facial asymmetry. The muscle strength is 5/5 in bilateral upper and lower extremities. Sensation intact to light touch. Skin: No rashes. Normal skin turgor. Psychiatric: Mood is okay. Affect is flat. Insight and judgment are fair. Laboratory Data: INR 0.96. Sodium 139, potassium 3.8, chloride 100, CO2 of 30, BUN 15, creatinine 0 .88, glucose 116, calcium 8.9, magnesium 2.4, AST 48, ALT 93. Troponin less than 0.02. CRP less stefan n 2.9. BNP 263. UA is negative. WBC 7.7, H and H 14.3 and 42.8, platelets 248, neutrophils 82%. Imaging Studies: Head CT scan shows no acute intracranial abnormality. Does have [id number] l ow-density areas representing ischemic changes secondary to small vessel disease. Chest x-ray shows no acute abnormality. Assessment And Plan: A 68-year-old female with: 1.Hypertensive emergency. Blood pressure now improved. We will continue to monitor closely. We wi ll avoid lowering blood pressure too much too quickly. We will aim for range between 160 and 180 sys tolic. 2.Transient ischemic attack, rule out cerebrovascular accident. Patient has headache, dizziness, ab normal pupils. Head CT scan was negative. There is no midline shift or edema. We will start on CVA stroke guidelines. Patient did have recent MRI of the brain in July that was negative for acute CVA. 3.Chronic obstructive pulmonary disease. We will start on albuterol treatments as needed. 4.Elevated liver enzymes, unclear etiology, would be related to nonalcoholic fatty liver disease. 5.Dementia. Alzheimer type, early onset without behavioral disturbance. 6.Deep vein thrombosis prophylaxis with Lovenox. Plan: Admit the patient to Med-Surg, place as observation. /RUDY Voice ID: [id number]
[2019-02-15 06:23] LABS: Absolute Lymphocytes (CBC) 1.6 K/uL (0.7-4.9); Basophils % 0.7 % (0-1.3); Hematocrit 33.1 % (36.0-45.0); Lymphocytes % 31.8 % (15.3-44.8); MPV 8.9 fL (7.6-11.3)
--- NOTE | 2019-02-15 06:29 | EKG ---
Test Date: 2019-02-14 Test Time: 15:19:24 Learning Support Resource Room Teacher: JACOBO MEASUREMENT RESULTS: Intervals: Rate: 85 TX: 140 QRSD: 80 QT: 364 QTc: 433 Rice: P: 52 TX: 140 QRS: 46 T: 68 INTERPRETIVE STATEMENTS: Normal sinus rhythm Nonspecific ST abnormality Abnormal ECG Compared to ECG 09/19/2018 18:30:40 ST (T wave) deviation now present Electronically Signed On 02-15-19 06:28:44 CDT by Wilmar Small
[2019-02-15 06:41] VITALS: BMI 21.4
[2019-02-15 06:44] LABS: Bilirubin Total 1.1 mg/dL (0.2-1.0); Potassium 4.2 mmol/L (3.5-5.1); Protein, Total 5.6 g/dL (6.4-8.2)
[2019-02-15] MEDS ORDERED: ASPIRIN EC 81 MG TAB PO SCH (09:00)
[2019-02-15] MEDS ORDERED: ENOXAPARIN 40 MG/0.4 ML SQ SCH (09:00)
[2019-02-15 11:33] VITALS: O2SAT 95
[2019-02-15 12:55] VITALS: BP 99/57; TEMP 97.4
--- NOTE | 2019-02-16 00:44 | DS ---
Date of Discharge: 02/15/2019 Consultants: None. Admitting Diagnoses: 1.Hypertensive emergency. 2.Acute metabolic encephalopathy. 3.Transient ischemic attack. 4.Chronic obstructive pulmonary disease. 5.Elevated liver enzymes. 6.Dementia, Alzheimer's type, early onset without behavioral disturbance. Hospital Course: The patient is a 68-year-old female with past medical history of hypertension, COPD , dementia, TIA, comes in with uncontrolled blood pressure, dizziness, headache and altered mental st atus. Patient was found to have blood pressure in the 200s/100, was given multiple medications withi n a 2-hour span in the ER. Head CT scan initially was negative. Her blood pressure responded. She actually became hypotensive, blood pressure in the 80s. She had to be given IV fluids and blood pres sure improved. The following day, the patient's mental status was back to baseline. She was much mo re awake, alert, and able to answer questions appropriately. Blood pressure was stable. Her dizzine ss and blurry vision resolved. She has had a recent MRI of the brain in July, which was negative for cerebrovascular accident. She follows with Neurology as outpatient and will need to make an appo intment fairly soon as outpatient. Initial head CT was negative. Doubt CVA with no residual deficit s at this time. Again, we would recommend further outpatient workup including neurology followup and possible repeat MRI. The patient did have some mildly elevated liver enzymes, which are now normali zed, unclear etiology. Her UA was negative. The patient was then able to ambulate without difficult y. She was weaned off O2 and she was discharged in a stable condition. Activity: As tolerated. Medications: As per medication reconciliation list. Diet: Heart healthy. Activity: As tolerated. Followup: Establish care with PCP in 2-3 days. Follow up with neurologist in 1 week. Return to ER for worsening condition. Physical Examination: General: Awake, alert, oriented x3. No acute distress, elderly female. CV: S1, S2. No murmurs. Respiratory: Moving air well bilaterally. Gastrointestinal: Abdomen is soft, nontender, nondistended. Positive bowel sounds. Extremities: No clubbing, cyanosis, edema. Neuro: Cranial nerves 2-12 intact grossly. No focal neurological deficit. Speech is normal. /RUDY Voice ID: [id number] Report ID: [id number]
== END 2019-02-15 12:41 | disposition home or self-care (01) ==
LOC: ER 14:35 → ERHOLD 17:19 → 4TH 20:33
PROVIDERS: ADMIT Family Medicine; ATTEND Family Medicine
DX: I16.1 Hypertensive emergency (principal); I95.2 Hypotension due to drugs; G93.41 Metabolic encephalopathy; G45.9 Transient cerebral ischemic attack, unspecified; J44.9 Chronic obstructive pulmonary disease, unspecified; R74.8 Abnormal levels of other serum enzymes; G30.0 Alzheimer's disease with early onset; F02.80 Dementia in other diseases classified elsewhere, unspecified severity, without behavioral disturbance, psychotic disturbance, mood disturbance, and anxiety; I10 Essential (primary) hypertension; Z79.899 Other long term (current) drug therapy
CPT/HCPCS: 96365; 96361; 93005; 85025 ×2; 80048; 36415; 83735; 85610; 80061; 80076; 85652; 81003; 84484; 80053; 83880; 86140; 70450; 71045; 97116; 97162; 94760 ×2; 96375; 99285; J0360; J2765; J1650; J7030 ×3; G0378 ×2